=== PATIENT | female | born 1980 | race Asian ===

== ENCOUNTER 2016-11-21 10:54 | Inpatient (IN) | payer OTHER ==
[2016-11-21] VITALS (22 sets, daily range): BP systolic 85–132; BP diastolic 47–76; PULSE 75–120; RESP 10–22; Ht 154.9 cm; Wt 52.8 kg
[~2016-11-21] VITALS: Ht 154.9 cm; Wt 52.8 kg
[2016-11-21] MEDS: SOD CHLORIDE 0.9% 1,000 ML IV SCH ×2 (07:00→20:36)
[2016-11-21 12:15] LABS: ADD SCAN DIFF NO
[2016-11-21 12:23] LABS: BASOPHIL # 0.1 10^3/ul (0.0-0.1); BASOPHILS % 0.4 % (0.0-2.0); EOSINOPHILS # 0.3 10^3/ul (0.0-0.5); EOSINOPHILS % 2.1 % (0.0-7.0); HEMATOCRIT 42.4 % (37.0-47.0); HEMOGLOBIN 13.6 g/dl (12.0-16.0); LYMPHOCYTES # 1.3 10^3/ul (0.8-2.9); LYMPHOCYTES % 9.9 % (15.0-51.0); MEAN CORPUSCULAR HEMOGLOBIN 29.2 pg (29.0-33.0); MEAN CORPUSCULAR HGB CONC 32.1 g/dl (32.0-37.0); MEAN PLATELET VOLUME 9.4 fl (7.4-10.4); MONOCYTE # 0.9 10^3/ul (0.3-0.9); MONOCYTES % 6.5 % (0.0-11.0); NEUTROPHIL # 10.6 10^3/ul (1.6-7.5); NEUTROPHILS % 80.7 % (39.0-77.0); PLATELET COUNT 410 10^3/UL (140-415); RED BLOOD COUNT 4.66 10^6/ul (4.20-5.40); RED CELL DISTRIBUTION WIDTH 13.1 % (11.5-14.5); WHITE BLOOD COUNT 13.2 10^3/ul (4.8-10.8)
[2016-11-21 12:30] LABS: PROTIME 13.2 Sec (12.2-14.2)
[2016-11-21 12:31] LABS: PARTIAL THROMBOPLASTIN TIME 31.2 Sec (25.0-35.0)
[2016-11-21 12:41] LABS: CREATININE 0.58 mg/dl (0.44-1.00); POTASSIUM 3.9 mmol/L (3.5-5.1)
[2016-11-21 13:15] LABS: CALCIUM 9.6 mg/dl (8.4-10.2)
[2016-11-21] MEDS ORDERED: ISOSULFAN BLUE 1% 5 ML INJ SC ONE (14:19)
[2016-11-21] MEDS ORDERED: CEFAZOLIN 2 GM/50 ML (PMX) 50 ML IVPB ONE (15:00)
[2016-11-21] MEDS: D5W-0.45 NACL + KCL 20 MEQ 1,000 ML IV SCH (15:45)
[2016-11-21] MEDS ORDERED: CEFAZOLIN 1 GM INJ ONE (15:48)
[2016-11-21] MEDS ORDERED: MIDAZOLAM 1 MG/ML 2 ML INJ ONE (15:48)
[2016-11-21] MEDS ORDERED: FENTAnyl 50 MCG/ML VIAL ONE (15:48)
[2016-11-21] MEDS ORDERED: PROPOFOL 20 ML ONE (15:48)
[2016-11-21] MEDS ORDERED: LIDOCAINE 2% (SDV) 5 ML INJ ONE (15:48)
[2016-11-21] MEDS ORDERED: ACETAMINOPHEN 1000MG/100ML IV 100 ML IVPB PRN (16:00)
[2016-11-21] MEDS ORDERED: ACETAMINOPHEN 1000MG/100ML IV 100 ML ONE (16:07)
[2016-11-21] MEDS ORDERED: METOCLOPRAMIDE 10 MG INJ ONE (16:08)
[2016-11-21] MEDS ORDERED: ONDANSETRON 4 MG INJ ONE (16:08)
[2016-11-21] MEDS ORDERED: HYDROmorphONE 2 MG/ML SYG ONE (16:21)
[2016-11-21] MEDS ORDERED: PHENYLephrine (100 MCG/ML) 5ML SYG ONE (16:33)
--- NOTE | 2016-11-21 17:13 | OPR ---
DATE OF OPERATION: 11/21/2016 PREOPERATIVE DIAGNOSIS: Invasive cancer, right breast. POSTOPERATIVE DIAGNOSIS: Invasive cancer, right breast. OPERATION PERFORMED: Right partial mastectomy and axillary dissection utilizing sentinel lymph node technique. ANESTHESIA: General. ANESTHESIOLOGIST: Lisa Brenner MD SURGEON: Haim Anguiano MD CANCER RESEARCHER: Favian Isaac MD INDICATIONS FOR PROCEDURE: The patient is a very unfortunate 36-year-old female who presented with a relatively large mass in her right breast approximately 3 cm in diameter. Workup including biopsy revealed a poorly differentiated cancer tumorous HER-2 negative and ER-positive and DC-positive. T herefore, decision was made to take her directly to surgery. She was counseled as to the risks vers us benefits of partial mastectomy and axillary dissection utilizing sentinel lymph node technique. She consented and was scheduled for surgery. DESCRIPTION OF PROCEDURE: The patient was brought to the operating theater. She consented and was scheduled for surgery. DESCRIPTION OF PROCEDURE: The patient was brought to the operating theater, placed under general en dotracheal tube anesthesia. The right breast and axillary region was prepped and draped in the usua l sterile fashion. Approximately 4 mL of 1% Lymphazurin blue dye was then injected peritumorally. The breast was gently massaged for approximately 12 minutes. Subsequently, a 3 cm incision was made in the right axillary hairline. Subcutaneous tissue was dissected with cautery down through the cl avipectoral fascia. A dye-stained lymphatic was identified and traced to the obvious sentinel node. There were additional enlarged nodes in this area. Therefore, decision was made to proceed with l evel 1 dissection. With blunt dissection along the chest wall the long thoracic nerve was identifie d, more superiorly the subclavian vein and thoracodorsal neurovascular bundle were identified and ke pt out of harm's way. The sentinel node and these additional axillary nodes were then meticulously harvested using LigaSure device. Intraoperative cytologic analysis performed by attending pathologi stDr. Rg did not reveal definite evidence of metastatic disease. Therefore, the woun d was irrigated. Minimal bleeding was controlled with cautery. A #10 flat Danish drain was then br ought through the right mid axillary line, cut to size, laid within the axilla and secured in place with 2-0 nylon suture in standard fashion. The skin was then reapproximated with a 4-0 Vicryl sutur e in subcuticular fashion. Attention was then directed to performing the partial mastectomy. The mass was palpable and it was at approximately the 1 to 2 o'clock location, approximately 3-4 cm from the nipple areolar border. A curvilinear incision was made directly over the mass. Subcutaneous tissue was dissected with caut ann-marie. Skin edges were elevated with skin hooks and wide circumferential tissue associated with the m ass took place, taking great care to ensure adequate margin. The mass was then dissected off the pe ctoralis major muscle. It was oriented and sent for permanent pathologic analysis. The wound was i rrigated. Minimal bleeding was controlled with cautery. The skin was then reapproximated with a de ep dermal layer of 4-0 Vicryl sutures, followed by final skin approximation with 5-0 PDS sutures in subcuticular fashion. Benzoin and Steri-Strips were applied to both wounds. The patient tolerated procedure well. Estimated blood loss was 30 mL. There were no complications and the patient was tr ansported in stable condition to the recovery room where circumferential compression dressing was ap plied. Dictated By: HAIM ANGUIANO MD TL/GUANACO Conf#: [id number] DID#: [id number] CC: FAVIAN ISAAC MD;*End*
[2016-11-21] MEDS ORDERED: DIPHENHYDRAMINE 50 MG INJ IV PRN (17:30)
[2016-11-21] MEDS ORDERED: ONDANSETRON 4 MG INJ IV PRN (17:30)
[2016-11-21] MEDS ORDERED: PROCHLORPERAZINE 10 MG INJ IV PRN (17:30)
[2016-11-21] MEDS ORDERED: IPRATROPIUM (NEB) 0.5 MG/2.5 ML AMP HHN ONE (17:30)
[2016-11-21] MEDS ORDERED: METOCLOPRAMIDE 10 MG INJ IV PRN (17:30)
[2016-11-21] MEDS ORDERED: HYDROmorphONE (0.2 MG/ML) 10ML SYG IV PRN (17:30)
[2016-11-21] MEDS ORDERED: MEPERIDINE 25 MG INJ IV PRN (17:30)
[2016-11-21] MEDS ORDERED: ALBUTEROL 0.5% (NEB) 2.5 MG/0.5 ML AMP INH ONE (17:30)
[2016-11-21] MEDS: FENTAnyl 50 MCG/ML VIAL IV PRN ×2 (17:43→17:48)
[2016-11-21] MEDS ORDERED: OXYCODONE/ACETAMINOPHEN (5/325) TAB PO PRN (19:00)
[2016-11-21 19:29] LABS: ADD SCAN DIFF NO
[2016-11-21 19:32] LABS: BASOPHIL # 0.1 10^3/ul (0.0-0.1); BASOPHILS % 0.4 % (0.0-2.0); EOSINOPHILS # 0.1 10^3/ul (0.0-0.5); EOSINOPHILS % 0.9 % (0.0-7.0); HEMATOCRIT 37.2 % (37.0-47.0); HEMOGLOBIN 11.8 g/dl (12.0-16.0); LYMPHOCYTES # 1.6 10^3/ul (0.8-2.9); LYMPHOCYTES % 11.7 % (15.0-51.0); MEAN CORPUSCULAR HEMOGLOBIN 29.4 pg (29.0-33.0); MEAN CORPUSCULAR HGB CONC 31.7 g/dl (32.0-37.0); MEAN CORPUSCULAR VOLUME 92.5 fl (82.0-101.0); MEAN PLATELET VOLUME 9.3 fl (7.4-10.4); MONOCYTES % 6.9 % (0.0-11.0); NEUTROPHILS % 79.6 % (39.0-77.0); PLATELET COUNT 337 10^3/UL (140-415); RED BLOOD COUNT 4.02 10^6/ul (4.20-5.40); RED CELL DISTRIBUTION WIDTH 13.1 % (11.5-14.5); WHITE BLOOD COUNT 13.8 10^3/ul (4.8-10.8)
[2016-11-21] MEDS: ONDANSETRON 4 MG INJ IV PRN (20:36)
--- NOTE | 2016-11-21 21:24 | HP ---
DATE OF ADMISSION: 11/21/2016 CHIEF COMPLAINT AND HISTORY OF PRESENT ILLNESS: The patient is a 36-year-old female with a history of pulmonary embolism back in 10/2016 and was admitted at [facility] and was put on Eliquis. The patient has been following up with Dr. Anguiano as an outpatient. The patient initially was diagnosed with a right breast mass and subsequently underwent ultrasound-guided core biopsy whic h was positive for invasive ductal carcinoma. The patient [facility] The patient also underwent PET scan as an outpatient which was negative for distant metasta sis. The patient was brought into hospital today and underwent right partial mastectomy and axillar y dissection. The patient postoperatively looked pale, and therefore a stat CBC has been ordered. The patient, however, was not very tachycardic. The patient was slightly sleepy but easily arousabl e and was fairly alert and oriented. Denies any abdominal pain. No vomiting. No recent bleeding f rom any site since she was started on Xarelto. No focal weakness in any extremity. No vomiting sin ce admission. The patient is breathing comfortably. REVIEW OF SYSTEMS: The rest of review of systems was unremarkable. PAST SURGICAL HISTORY: None. ALLERGIES: LEVOTHYROXINE, WHICH CAUSES SHORTNESS OF BREATH. SOCIAL HISTORY: No smoking, no alcohol. FAMILY HISTORY: The patient's maternal grandmother had breast cancer. MEDICATIONS PRIOR TO ADMISSION: The patient was on Eliquis 5 mg b.i.d. as per her , although it was not reconciled in the medical record. PHYSICAL EXAMINATION: GENERAL: The patient is sleepy but easily arousable and follows simple commands. VITAL SIGNS: Temperature 97.7, pulse 93, respirations 16, blood pressure 85/53, O2 sat 100% on supp lemental oxygen. HEENT: Conjunctivae and lids normal. Nose and ears normal. Oropharynx grossly negative. NECK: No mass. CHEST: Fairly clear. CARDIOVASCULAR: S1, S2 normal. No murmur. ABDOMEN: Soft, nondistended. EXTREMITIES: No leg edema. Pedal pulses palpable. SKIN: Without acute rash. IMPRESSION: 1. Invasive cancer, right breast, status post right partial mastectomy and axillary resection. 2. History of recent pulmonary embolism. PLAN: The patient will be admitted on medical floor. The patient will be started on clear liquid d iet which will be advanced as tolerated. The patient will be given IV Tylenol, Percocet and IV morp austin for pain control depending upon severity. The patient will be given IV fluid. Will do a stat CBC. Will continue SCD for DVT prophylaxis. Will resume Xarelto once cleared by Surgery. Plan of care discussed with the patient's and nursing staff. If patient has any significant drop in hemoglobin, will consider transfusion. Dictated By: DANNY JOSEPH/GUANACO Conf#: [id number] DID#: [id number]
[2016-11-21] MEDS: morphine 2 MG INJ IV PRN (21:52)
[2016-11-22 00:02] VITALS: BP 110/72; PULSE 94; RESP 18
[2016-11-22] MEDS: D5W-0.45 NACL + KCL 20 MEQ 1,000 ML IV SCH ×4 (00:07→22:50)
[2016-11-22 03:26] VITALS: BP 105/65; PULSE 95; RESP 18
[2016-11-22] MEDS: morphine 2 MG INJ IV PRN ×2 (03:28→22:47)
[2016-11-22] MEDS: ONDANSETRON 4 MG INJ IV PRN ×2 (03:29→22:45)
[2016-11-22 07:26] VITALS: BP 111/59; RESP 18
[2016-11-22] MEDS: SOD CHLORIDE 0.9% 1,000 ML IV SCH ×2 (07:46→22:50)
[2016-11-22] MEDS ORDERED: APIX5TAB PO (08:34)
[2016-11-22] MEDS: APIXABAN 5 MG TABLET PO SCH ×2 (09:38→20:39)
[2016-11-22] MEDS ORDERED: ALBUTEROL 0.5% (NEB) 2.5 MG/0.5 ML AMP HHN PRN (11:00)
[2016-11-22] MEDS: ALBUTEROL 0.5% (NEB) 2.5 MG/0.5 ML AMP HHN SCH ×2 (11:42→19:36)
--- NOTE | 2016-11-22 14:53 | PDOCDIS ---
Discharge Instructions CONDITION Patient Condition: Stable HOME CARE INSTRUCTIONS: Diet Instructions: RegularSpecial Diet: rd ACTIVITY: Activity Restrictions: Slowly Increase Activity Rest between Activity Avoid heavy lifting Avoid Heavy Housework Activity Restrictions Comment: Avoid getting surgical incision wet at all times FOLLOW UP/APPOINTMENTS Appointments FU with primary MD X 1 WEEK FU with surgeon as recommended. Call 911 or go to the nearest hospital if symptoms worsen- patient verbalized understanding discharge instructions GIOVANNA DELCID Nov 22, 2016 14:53
--- NOTE | 2016-11-22 15:20 | PN ---
DATE: 11/22/2016 SUBJECTIVE: No specific complaints. Apparently, she has been feeling slightly short of breath. She has received a pulmonary treatment and she is feeling better now. No chest pain. . OBJECTIVE VITAL SIGNS: Temperature 98.4, heart rate 74 to 86, respiratory rate 16 to 18, blood pressure 111/59, saturation 99% on room air. ABDOMEN: Soft. Dressing is intact. Leroy-Thao drain is draining serosanguineous fluid. ASSESSMENT AND PLAN: The patient is a 36-year-old female with invasive cancer of the right breast, who underwent a partial mastectomy with sentinel lymph node dissection at axillary level 1 lymph nodes. Today she is postoperative day #1. The patient is stable and doing fine. Apparently, the patient has been on anticoagulation with Eliquis before her operation for possible pulmonary emboli, which was diagnosed about a month ago. She stopped taking this on Thursday, 2 days prior to operation, and today it was restarted by Dr. Anguiano. The patient is doing fine. The patient can be discharged home with the Leroy-Thao drain in place and the nurse is going to teach the patient how to take care of the Leroy-Thao, and then she will call the office on Thursday and make an appointment to follow with Dr. Anguiano in the office. Dictated By: SKYLER SMITH/GUANACO Conf#: [id number] DID#: [id number] MTDD
[2016-11-22] MEDS ORDERED: DOCU-144 PO (15:39)
[2016-11-22] MEDS ORDERED: OXYC-279 PO (15:39)
[2016-11-22] MEDS ORDERED: CEPH500C PO (15:39)
--- NOTE | 2016-11-22 15:51 | PN ---
Date/Time of Note Date/Time of Note DATE: 11/22/16 TIME: 15:50 Assessment/Plan VTE Prophylaxis VTE Prophylaxis Intervention: other Lines/Catheters IV [facility]from [facility] Peripheral IV Urinary Cath still in place: No Assessment/Plan Assessment/Plan 1. Invasive cancer, right breast, status post right partial mastectomy and axillary resection. - per surgery 2. History of recent pulmonary embolism. Patient is not ready to go home today, would like another day in hospital. She c /o Sob BUT NONE NOTICED AT PRESENT. We will do AM labs, CXR - fu. dw dr Price Subjective 24 Hr Interval Summary Eyes: no complaints ENT: no complaints Respiratory: no complaints Cardiovascular: no complaints Gastrointestinal: no complaints Genitourinary: no complaints Musculoskeletal: no complaints Skin: other Neurologic: no complaints Endocrine: no complaints Lymphatic: no complaints Psychological: nl mood/affect Immunologic: no complaints Exam/Review of Systems Vital Signs Vitals Vital Signs Date Time Temp Pulse Resp B/P Pulse Ox O2 Delivery O2 Flow Rate FiO2 11/22/16 11:50 86 16 100 11/22/16 08:00 2.0 11/22/16 07:26 98.4 111/59 11/22/16 03:26 Room Air Intake and Output 11/21/16 11/21/16 11/22/16 15:00 23:00 07:00 Intake Total 900 ml 1127 ml Output Total 10 ml 420 ml Balance 890 ml 707 ml Exam Constitutional: alert, oriented, well developed Psych: nl mood/affect Head: atraumatic Eyes: EOMI, nl sclera ENMT: nl external ears & nose Neck: non-tender Respiratory: clear to auscultation Cardiovascular: nl pulses Gastrointestinal: non-tender, soft Musculoskeletal: nl extremities to inspection Extremities: normal pulses Neurological: nl mental status, nl speech Results Result Diagram: 11/21/16 1925 11/21/16 1208 Results 24 hrs Laboratory Tests Test 11/21/16 19:25 Basophils # 0.1 Basophils % 0.4 Eosinophils # 0.1 Eosinophils % 0.9 Hematocrit 37.2 Hemoglobin 11.8 L Lymphocytes # 1.6 Lymphocytes % 11.7 L Mean Corpuscular Hemoglobin 29.4 Mean Corpuscular Hemoglobin Concent 31.7 L Mean Corpuscular Volume 92.5 Mean Platelet Volume 9.3 Monocytes # 1.0 H Monocytes % 6.9 Neutrophils # 11.0 H Neutrophils % 79.6 H Nucleated Red Blood Cells # 0.0 Nucleated Red Blood Cells % 0.0 Platelet Count 337 Red Blood Count 4.02 L Red Cell Distribution Width 13.1 White Blood Count 13.8 H Medications Medications Current Medications Sodium Chloride (NS) 1,000 ml @ 75 mls/hr [id number] IV Last administered on 11/21 20:36; Admin Dose 75 MLS/HR; Start 11/21/16 at 07:00 Ondansetron HCl 4 mg 4 mg Q6H PRN IV NAUSEA AND/OR VOMITING Last administered on 11/22/16 03:29; Admin Dose 4 MG; Start 11/21/16 at 16:00 Potassium Chloride/Dextrose/ Sod Cl (D5-1/2ns + KCl 20 Meq) 1,000 ml @ 125 mls/ hr Q8H IV Last administered on 11/22/16 12:04; Admin Dose 125 MLS/HR; Start at 15:45 Morphine Sulfate 2 mg 2 mg Q1H PRN IV PAIN Last administered on 11/22/16 03:28 ; Admin Dose 2 MG; Start 11/21/16 at 16:00 Acetaminophen (Ofirmev 1000mg/ 100ml Iv) 100 ml @ 400 mls/hr Q6H PRN IVPB PAIN Last administered on 11/22/16 09:38; Admin Dose 400 MLS/HR; Start at 16:00 Oxycodone/ Acetaminophen (Percocet (5/ 325)) 1 tab Q4H PRN PO PAIN Last administered on 11/22/16 15:07; Admin Dose 1 TAB; Start 11/21/16 at 19:00 Apixaban (Eliquis) 5 mg BID PO Last administered on 11/22/16 09:38; Admin Dose 5 MG; Start 11/22/16 at 09:00 GIOVANNA DELCID Nov 22, 2016 15:51
--- NOTE | 2016-11-22 17:48 | RADRPT ---
PROCEDURE: XR Chest. CLINICAL INDICATION: Chest pain, shortness of breath TECHNIQUE: AP view of the chest was performed. COMPARISON: None FINDINGS: Borderline cardiomegaly is present. The lungs are clear. No signs of pleural fluid or pneumothorax a re seen. No acute infiltrate or findings of fluid overload. The osseous structures and soft tissues are unremarkable. IMPRESSION: No evidence for active cardiopulmonary disease. Borderline cardiomegaly. No acute infiltrate or fin dings of fluid overload. RPTAT: QQ .Ayesha Nascimento MD, MD Date Time Electronically viewed and signed by .Ayesha Nascimento MD, MD on 11/22/2016 17:47 .F/
[2016-11-22] MEDS ORDERED: CEPHALEXIN 500 MG CAP PO SCH (18:00)
[2016-11-22 20:20] VITALS: BP 110/72; PULSE 94; RESP 18
[2016-11-22] MEDS ORDERED: DIPHENHYDRAMINE 50 MG INJ IM PRN (21:00)
[2016-11-23 05:39] LABS: ALBUMIN 3.2 g/dl (3.3-4.9)
[2016-11-23 05:40] LABS: POTASSIUM 3.4 mmol/L (3.5-5.1)
[2016-11-23 05:42] LABS: ALBUMIN/GLOBULIN RATIO 1.28; BILIRUBIN,INDIRECT 0.2 mg/dl (0-1.1); BILIRUBIN,TOTAL 0.2 mg/dl (0.2-1.3); CREATININE 0.57 mg/dl (0.44-1.00); TOTAL PROTEIN 5.7 g/dl (6.1-8.1)
[2016-11-23 05:43] LABS: CALCIUM 8.6 mg/dl (8.4-10.2)
[2016-11-23] MEDS: D5W-0.45 NACL + KCL 20 MEQ 1,000 ML IV SCH (07:45)
[2016-11-23 08:11] VITALS: BP 105/66; RESP 20
[2016-11-23] MEDS: APIXABAN 5 MG TABLET PO SCH ×2 (10:48→17:57)
[2016-11-23] MEDS: ALBUTEROL 0.5% (NEB) 2.5 MG/0.5 ML AMP HHN SCH (11:03)
[2016-11-23] MEDS ORDERED: traMADol 50 MG TAB PO PRN (12:00)
[2016-11-23 12:09] LABS: ADD SCAN DIFF NO
[2016-11-23] MEDS: SOD CHLORIDE 0.9% 1,000 ML IV SCH (12:20)
[2016-11-23] MEDS ORDERED: CEPASTAT LOZENGE MT PRN (12:30)
[2016-11-23 13:34] LABS: BASOPHIL # 0.1 10^3/ul (0.0-0.1); BASOPHILS % 0.5 % (0.0-2.0); EOSINOPHILS # 0.4 10^3/ul (0.0-0.5); EOSINOPHILS % 4.2 % (0.0-7.0); HEMATOCRIT 34.9 % (37.0-47.0); HEMOGLOBIN 11.1 g/dl (12.0-16.0); LYMPHOCYTES # 2.2 10^3/ul (0.8-2.9); MEAN CORPUSCULAR HGB CONC 31.8 g/dl (32.0-37.0); MEAN CORPUSCULAR VOLUME 94.3 fl (82.0-101.0); MEAN PLATELET VOLUME 9.8 fl (7.4-10.4); MONOCYTES % 9.9 % (0.0-11.0); NEUTROPHIL # 6.2 10^3/ul (1.6-7.5); NEUTROPHILS % 63.1 % (39.0-77.0); PLATELET COUNT 329 10^3/UL (140-415); RED CELL DISTRIBUTION WIDTH 13.5 % (11.5-14.5); WHITE BLOOD COUNT 9.8 10^3/ul (4.8-10.8)
[2016-11-23] MEDS ORDERED: POTASSIUM CHLORIDE (SR) 20 MEQ TAB PO STA (14:38)
--- NOTE | 2016-11-23 15:43 | PN ---
DATE: 11/23/2016 Postop day #2. SUBJECTIVE: The patient feels better. No more shortness of breath. Has been walking around. OBJECTIVE: VITAL SIGNS: Temperature 98.2, 71, 18, blood pressure 105/66, saturation 98% to 99% on room air. LABORATORIES: WBC 9800, normal. Hemoglobin 11.1, hematocrit 34.9. Neutrophils 63%, normal. Chemi stry: Sodium, potassium, BUN, creatinine normal. ASSESSMENT: Status post right partial mastectomy with axillary dissection. The patient is stable. She has history of pulmonary emboli in the past and she was short of breath here, which was evaluat ed and treated with the respiratory treatment with bronchodilators and also the patient is on an ant icoagulant which was started yesterday. The patient is doing fine. Leroy-Thao drainage is not b loody. PLAN: The patient feels good, she wants to go home, and patient can be discharged home with pain me dication to be followed by Dr. Anguiano in his office. She should call and make an appointment. Also, Leroy-Thao will stay there, and will be changed and removed in the office by Dr. Anguiano' group. Dictated By: SKYLER BERKOWITZ MD PS/NTS Conf#: [id number] DID#: [id number]
[2016-11-23] MEDS ORDERED: TRAM50TA2 PO (16:05)
--- NOTE | 2016-11-23 16:07 | DS ---
Date/Time of Note Date/Time of Note DATE: 11/23/16 TIME: 16:06 Discharge Summary Admission/Discharge Info Admit Date/Time Nov 21, 2016 at 18:35 Discharge Date/Time Patient Condition: Stable Hospital Course Keflex, Percocet dcd on discharge. Home Meds Active Scripts Tramadol HCl (Tramadol HCl) 50 Mg Tablet, 50 MG PO Q6H Y for PAIN, #20 TAB Prov:GIOVANNA DELCID 11/23/16 Cephalexin* (Cephalexin*) 500 Mg Capsule, 500 MG PO Q6 for 7 Days, #28 CAP Prov:GIOVANNA DELCID 11/22/16 Oxycodone HCl/Acetaminophen (Percocet 5-325 mg Tablet) 1 Each Tablet, 1 EACH PO Q6, #14 TAB Prov:GIOVANNA DELCID 11/22/16 Docusate Sodium* (Colace*) 100 Mg Capsule, 100 MG PO BID, #30 CAP Prov:GIOVANNA DELCID 11/22/16 Reported Medications Apixaban* (Eliquis*) 5 Mg Tablet, 5 MG PO BID, TAB 11/22/16 Pending Labs Laboratory Tests Test 11/23/16 04:14 Alanine Aminotransferase (ALT/SGPT) 22IU/L (13-69) Albumin 3.2g/dl (3.3-4.9) Albumin/Globulin Ratio 1.28 Alkaline Phosphatase 39IU/L (42-121) Anion Gap 13 (8-16) Aspartate Amino Transf (AST/SGOT) 14IU/L (15-46) Basophils # 0.110^3/ul (0.0-0.1) Basophils % 0.5% (0.0-2.0) Blood Urea Nitrogen 9mg/dl (7-20) Calcium Level 8.6mg/dl (8.4-10.2) Carbon Dioxide Level 27mmol/L (21-31) Chloride Level 106mmol/L (97-110) Creatinine 0.57mg/dl (0.44-1.00) Direct Bilirubin 0.00mg/dl (0.00-0.20) Eosinophils # 0.410^3/ul (0.0-0.5) Eosinophils % 4.2% (0.0-7.0) Globulin 2.50g/dl (1.3-3.2) Glucose Level 87mg/dl (70-220) Hematocrit 34.9% (37.0-47.0) Hemoglobin 11.1g/dl (12.0-16.0) Indirect Bilirubin 0.2mg/dl (0-1.1) Lymphocytes # 2.210^3/ul (0.8-2.9) Lymphocytes % 22.0% (15.0-51.0) Mean Corpuscular Hemoglobin 30.0pg (29.0-33.0) Mean Corpuscular Hemoglobin Concent 31.8g/dl (32.0-37.0) Mean Corpuscular Volume 94.3fl (82.0-101.0) Mean Platelet Volume 9.8fl (7.4-10.4) Monocytes # 1.010^3/ul (0.3-0.9) Monocytes % 9.9% (0.0-11.0) Neutrophils # 6.210^3/ul (1.6-7.5) Neutrophils % 63.1% (39.0-77.0) Nucleated Red Blood Cells # 0.010^3/ul (0.0-0.0) Nucleated Red Blood Cells % 0.0/100WBC (0.0-0.0) Platelet Count 73923^3/UL (140-415) Potassium Level 3.4mmol/L (3.5-5.1) Red Blood Count 3.7010^6/ul (4.20-5.40) Red Cell Distribution Width 13.5% (11.5-14.5) Sodium Level 143mmol/L (135-144) Total Bilirubin 0.2mg/dl (0.2-1.3) Total Protein 5.7g/dl (6.1-8.1) White Blood Count 9.810^3/ul (4.8-10.8) GIOVANNA DELCID Nov 23, 2016 16:07
== END 2016-11-23 18:45 | disposition home or self-care (01) | DRG 581 ==
LOC: SDS 10:54 → EDSTATUS 14:00 → MS1 18:35 → SDS 18:35
PROVIDERS: ADMIT Surgery Surgical Oncology; ATTEND Surgery Surgical Oncology
PROC: 07B50ZZ Excision of Right Axillary Lymphatic, Open Approach (ICD-10-PCS; 2016-11-21)
PROC: 0HBT0ZZ Excision of Right Breast, Open Approach (ICD-10-PCS; principal; 2016-11-21 14:00)
DX: C50.411 Malignant neoplasm of upper-outer quadrant of right female breast (principal); Z86.711 Personal history of pulmonary embolism
CPT/HCPCS: 71010; 80048; 80053; 84703; 85025; 85610; 85730; 88307; 94640; 94664; J0131; J0690; J1170; J2175; J2250; J2270; J2370; J2405; J2765; J3010; J3480; J7030; Q9968

== ENCOUNTER → 2016-12-30 | Outpatient (CLI) | payer OTHER ==
[~2016-12-30] MED LIST: APIX5TAB PO; CEPH500C PO; DOCU-144 PO; OXYC-279 PO; TRAM50TA2 PO
--- NOTE | 2016-12-31 08:10 | RADRPT ---
Echocardiogram Report Patient Name: BJORN BULLARD Gender: Female Date: 1980 Study Date: 30-Dec-2016 Time Study Analyst: Jaelyn Lopez RDCS Location: EKG Ref. Physician: ANIRUDH LEUNG Quality: Good Procedures: Transthoracic echocardiogram with complete 2D, M-Mode, and doppler examination. Indications: Breast Cancer. 2D/M Mode Doppler Measurement Value Normal Ranges Measurement Value Normal Ranges LVIDd 2D 3.7 3.5 - 5.6 cm AV Peak Vin 1.2 m/sec LVIDs 2D 2.7 2.1 - 4.1 cm AV Peak PG 6.0 mmHg FS 2D 25.9 % LVOT Peak Vin 1.1 m/sec LVPWd 2D 0.7 0.6 - 1.1 cm LVOT Peak PG 5.0 mmHg IVSd 2D 0.7 0.6 - 1.1 cm MV E Peak Vin 0.7 m/sec IVS/LVPW 2D 1.0 MV A Peak Vin 0.6 m/sec AoR Diam 2D 2.1 2.0 - 3.7 cm MV E/A 1.1 LA/Ao 2D 1 0 - 1 MV Decel Time 218 msec EDV 2D 49.4 cm3 MV E/A 1.1 ESV 2D 20.1 cm3 LA Dimen 2D 2.6 2.3 - 4.0 cm Findings Left Ventricle: Normal left ventricular systolic function. Normal left ventricular cavity size. Normal left ventricular wall thickness. Ejection fraction is visually estimated at 55 %. Tissue Doppler/Mitral Doppler indices are within normal limits. Right Ventricle: Normal right ventricular size. Normal right ventricular systolic function. Left Atrium: The left atrium is normal in size. Right Atrium: The right atrium is normal in size. Mitral Valve: Normal appearance and function of the mitral valve with trace physiologic regurgitation. Aortic Valve: Normal appearance of the aortic valve. No significant aortic stenosis or insufficiency. Tricuspid Valve: Normal appearance of the tricuspid valve. Unable to obtain RVSP due to minimal presence of tricuspid regurgitation. There is trace tricuspid regurgitation. Pulmonic Valve: Normal pulmonic valve appearance. Pericardium: Normal pericardium with no significant pericardial effusion. Aorta: Normal aortic root. IVC: Normal size and normal respiratory collapse consistent with normal right atrial pressure. Conclusions Normal left ventricular systolic function. Normal left ventricular cavity size. Normal left ventricular wall thickness. Ejection fraction is visually estimated at 55 %. Tissue Doppler/Mitral Doppler indices are within normal limits. Normal right ventricular size. Normal right ventricular systolic function. Normal appearance of the tricuspid valve. Unable to obtain RVSP due to minimal presence of tricuspid regurgitation. There is trace tricuspid regurgitation. Normal size and normal respiratory collapse consistent with normal right atrial pressure. Normal pericardium with no significant pericardial effusion. Electronically Signed By: Keanu Hawkins 31-Dec-2016 08:08:55 -0700 Patient Name: BJORN BULLARD Study Date: 30-Dec-2016 [id number]
== END | disposition home or self-care (01) ==
LOC: EKG 14:09
PROVIDERS: ATTEND Internal Medicine Hematology & Oncology
DX: C50.919 Malignant neoplasm of unspecified site of unspecified female breast (principal)
CPT/HCPCS: 93306

== ENCOUNTER 2017-01-02 08:49 | Inpatient (IN) | payer OTHER ==
[2017-01-01] MEDS: SOD CHLORIDE 0.9% 1,000 ML IV SCH (20:00)
[2017-01-02] VITALS (23 sets, daily range): BP systolic 96–131; BP diastolic 45–73; PULSE 74–100; RESP 16–20; Ht 154.9 cm; Wt 52.4 kg
[~2017-01-02] VITALS: Ht 154.9 cm; Wt 52.4 kg
[~2017-01-02 08:49] MED LIST changes: +CEFAZOLIN 1 GM INJ ONE; +CEFAZOLIN 1 GM/50 ML (PMX) 50 ML IVPB ONE; +ROCURONIUM 50 MG INJ ONE
[2017-01-02] MEDS ORDERED: FENTAnyl 50 MCG/ML VIAL ONE (12:00)
[2017-01-02] MEDS ORDERED: PHENYLephrine (100 MCG/ML) 5ML SYG ONE (12:40)
[2017-01-02] MEDS ORDERED: DIPHENHYDRAMINE 50 MG INJ IV PRN (13:00)
[2017-01-02] MEDS ORDERED: MEPERIDINE 25 MG INJ IV PRN (13:00)
[2017-01-02] MEDS ORDERED: ONDANSETRON 4 MG INJ IV PRN (13:00)
[2017-01-02] MEDS ORDERED: ALBUTEROL 0.083% (NEB) 2.5 MG/3 ML AMP HHN ONE (13:00)
[2017-01-02] MEDS ORDERED: METOCLOPRAMIDE 10 MG INJ IV PRN (13:00)
[2017-01-02] MEDS ORDERED: FENTAnyl 50 MCG/ML VIAL IV PRN (13:00)
[2017-01-02] MEDS ORDERED: GLYCOPYRROLATE 0.4 MG INJ ONE (13:08)
[2017-01-02] MEDS ORDERED: SUCCINYLCHOLINE CHLORIDE 100 MG/5 ML SYG IV ONE (13:08)
[2017-01-02] MEDS ORDERED: LIDOCAINE 2% (SDV) 5 ML INJ ONE (13:08)
[2017-01-02] MEDS ORDERED: NEOSTIGMINE 3 MG/3 ML SYRINGE ONE (13:08)
[2017-01-02] MEDS ORDERED: PROPOFOL 20 ML ONE (13:08)
[2017-01-02] MEDS: FENTAnyl 50 MCG/ML VIAL IV PRN ×3 (13:28→14:13)
--- NOTE | 2017-01-02 13:39 | OPR ---
DATE OF OPERATION: 01/02/2017 PREOPERATIVE DIAGNOSIS: Right breast cancer, need for right reexcision partial mastectomy. POSTOPERATIVE DIAGNOSIS: Right breast cancer, need for right reexcision partial mastectomy. PROCEDURE PERFORMED: Reexcision right partial mastectomy. SURGEON: Haim Anguiano MD ICE HOCKEY COACH: Favian Isaac MD ANESTHESIA: General. ANESTHESIOLOGIST: Liam Lyle MD INDICATIONS FOR PROCEDURE: The patient is an unfortunate 36-year-old female previously diagnosed an d treated for right breast cancer with a right partial mastectomy and axillary dissection using the sentinel lymph node technique. Final pathology revealed inadequate posterior margin. Reexcision wa s recommended. The patient consented and was scheduled for surgery. DESCRIPTION OF PROCEDURE: The patient was brought to the operating theater, placed under general an esthesia. The right breast was prepped and draped in the usual sterile fashion. The previous surgi selam incisional scar was then reincised with 15 blade scalpel. Subcutaneous tissue was dissected wit h cautery until the biopsy cavity was entered. A small amount of seroma fluid and clot was then suc tioned and evacuated from the biopsy cavity. The skin edges were elevated with skin hooks and wide circumferential dissection of the biopsy cavity took place, taking great care to ensure an adequate posterior margin. This was accomplished by taking a small portion of the pectoralis major muscle. Specimen was removed, oriented and sent for permanent pathologic analysis. The wound was irrigated. Minimal bleeding was controlled with cautery. The skin was then reapproximated with 4-0 Vicryl woody ture in subcuticular fashion, and benzoin and Steri-Strips were applied. The patient tolerated the procedure well. The estimated blood loss was 20 mL. There were no complications and the patient wa s transported in stable condition to the recovery room where a circumferential compression dressing was applied. Dictated By: HAIM ANGUIANO MD TL/GUANACO Conf#: [id number] DID#: [id number]
[2017-01-02] MEDS ORDERED: morphine 2 MG INJ ONE (14:58)
[2017-01-02] MEDS: morphine 2 MG INJ IV PRN (15:53)
[2017-01-02] MEDS: D5W-0.45 NACL + KCL 20 MEQ 1,000 ML IV SCH (17:00)
[2017-01-02] MEDS: ONDANSETRON 4 MG INJ IV PRN (17:02)
--- NOTE | 2017-01-02 17:02 | QN ---
Documentation Comment [id number] NELY MARCUM MD Jan 02, 2017 17:02
[2017-01-02] MEDS: KETOROLAC 30 MG INJ IV PRN (17:03)
--- NOTE | 2017-01-02 17:59 | HP ---
DATE OF ADMISSION: 01/02/2017 HISTORY OF PRESENT ILLNESS: The patient has history of pulmonary embolism, history of right breast m ass, status post right partial mastectomy. The patient had reexcision and surgery of the right daisy st mass. She is being seen postprocedure. Blood pressure 131/67, temperature 98.5. Denies any sri rtness of breath, nausea. Patient admitted for further management. PAST MEDICAL HISTORY: Positive for right breast partial mastectomy. ALLERGY 1. LEVAQUIN. 2. OXYCODONE. SOCIAL HISTORY: Negative. FAMILY HISTORY: Positive for breast cancer. MEDICATIONS AT HOME: 1. Patient is currently on cefazolin IV. 2. Albuterol. 3. Ibuprofen. 4. Toradol. 5. Zofran. 6. At home, she takes Apixaban 5 mg daily. 5. Docusate sodium. 6. Tramadol. REVIEW OF SYSTEMS: HEENT: Unremarkable. RESPIRATORY: Unremarkable. CARDIOVASCULAR: Complaining of chest wall pain. ABDOMEN: Unremarkable. EXTREMITIES: Unremarkable. GENITOURINARY: Unremarkable. MUSCULOSKELETAL: Unremarkable. PHYSICAL EXAMINATION: GENERAL: The patient is awake, alert. VITAL SIGNS: Pulse 97, blood pressure 110/54. HEAD: Atraumatic, normocephalic. Pupils equal, reactive to light. NECK: Supple. No JVD. LUNGS: Clear. CARDIOVASCULAR: S1, S2 normal. ABDOMEN: Soft, nontender. Bowel sounds present. No palpable mass. EXTREMITIES: No cyanosis, clubbing, edema. CENTRAL NERVOUS SYSTEM: The patient is awake, alert, no focal deficit. LABORATORY DATA: Not available. IMPRESSION: 1. Right breast reexploration. 2. The patient has right breast cancer. 3. The patient has right reexcision partial mastectomy. 4. History of pulmonary embolism, status post levofloxacin. PLAN: To continue home medications, gentle IV fluid, pain medications, incentive spirometry. Other recommendations per Dr. Anguiano. Dictated By: NELY JACKSON/GUANACO Conf#: [id number] DID#: [id number]
[2017-01-02] MEDS ORDERED: IBUPROFEN 400 MG TAB PO SCH (18:00)
[2017-01-02 18:01] LABS: ALBUMIN 3.6 g/dl (3.3-4.9); POTASSIUM 3.7 mmol/L (3.5-5.1)
[2017-01-02 18:03] LABS: BILIRUBIN,INDIRECT 0.3 mg/dl (0-1.1); BILIRUBIN,TOTAL 0.3 mg/dl (0.2-1.3); CREATININE 0.47 mg/dl (0.44-1.00)
[2017-01-02 18:04] LABS: ALBUMIN/GLOBULIN RATIO 1.33; TOTAL PROTEIN 6.3 g/dl (6.1-8.1)
[2017-01-02 18:05] LABS: CALCIUM 8.5 mg/dl (8.4-10.2)
[2017-01-02] MEDS: APIXABAN 5 MG TABLET PO SCH (20:34)
[2017-01-02] MEDS: DOCUSATE SODIUM 100 MG CAP PO SCH (20:39)
[2017-01-02] MEDS: SOD CHLORIDE 0.9% 1,000 ML IV SCH (23:59)
[2017-01-03] VITALS: BP 96/55; PULSE 88; RESP 20
[2017-01-03] MEDS: KETOROLAC 30 MG INJ IV PRN ×3 (00:32→16:36)
[2017-01-03] MEDS: D5W-0.45 NACL + KCL 20 MEQ 1,000 ML IV SCH ×3 (02:04→16:27)
[2017-01-03 04:00] VITALS: BP 98/58; PULSE 85; RESP 20
[2017-01-03 05:33] LABS: ADD SCAN DIFF NO
[2017-01-03 05:46] LABS: BASOPHILS % 0.3 % (0.0-2.0); EOSINOPHILS # 0.3 10^3/ul (0.0-0.5); EOSINOPHILS % 2.7 % (0.0-7.0); HEMATOCRIT 34.2 % (37.0-47.0); HEMOGLOBIN 10.9 g/dl (12.0-16.0); LYMPHOCYTES # 1.9 10^3/ul (0.8-2.9); LYMPHOCYTES % 15.8 % (15.0-51.0); MEAN CORPUSCULAR HEMOGLOBIN 29.8 pg (29.0-33.0); MEAN CORPUSCULAR HGB CONC 31.9 g/dl (32.0-37.0); MEAN CORPUSCULAR VOLUME 93.4 fl (82.0-101.0); MEAN PLATELET VOLUME 9.5 fl (7.4-10.4); MONOCYTE # 1.2 10^3/ul (0.3-0.9); MONOCYTES % 9.8 % (0.0-11.0); NEUTROPHIL # 8.5 10^3/ul (1.6-7.5); PLATELET COUNT 357 10^3/UL (140-415); RED BLOOD COUNT 3.66 10^6/ul (4.20-5.40); RED CELL DISTRIBUTION WIDTH 13.3 % (11.5-14.5)
[2017-01-03 07:40] VITALS: BP 104/58; RESP 15
[2017-01-03] MEDS: APIXABAN 5 MG TABLET PO SCH (07:59)
[2017-01-03] MEDS: DOCUSATE SODIUM 100 MG CAP PO SCH ×2 (07:59→20:25)
[2017-01-03] MEDS: traMADol 50 MG TAB PO PRN (13:43)
[2017-01-03] MEDS: ONDANSETRON 4 MG INJ IV PRN ×3 (14:27→22:32)
[2017-01-03] MEDS: morphine 2 MG INJ IV PRN ×3 (14:27→22:32)
--- NOTE | 2017-01-03 15:26 | PN ---
Date/Time of Note Date/Time of Note DATE: 01/03/17 TIME: 15:24 Assessment/Plan VTE Prophylaxis VTE Prophylaxis Intervention: ambulation Lines/Catheters IV [facility] Per[facility] IV Assessment/Plan Chief Complaint/Hosp Course 1. Right breast exploration 2, History of breast cancer Problems: Assessment/Plan 1. continue a/b 2. Breast support Subjective 24 Hr Interval Summary Constitutional: no complaints Eyes: no complaints ENT: no complaints Respiratory: no complaints Cardiovascular: no complaints Skin: other (pain right breast) Exam/Review of Systems Vital Signs Vitals Vital Signs Date Time Temp Pulse Resp B/P Pulse Ox O2 Delivery O2 Flow Rate FiO2 01/03/17 07:40 98.0 84 15 104/58 100 01/03/17 04:00 Room Air 01/02/17 13:12 8.0 Intake and Output 01/02/17 01/02/17 01/03/17 15:00 23:00 07:00 Intake Total 800 ml 500 ml 1900 ml Output Total 10 ml Balance 790 ml 500 ml 1900 ml Exam Constitutional: alert, oriented Psych: no complaints Head: normocephalic Eyes: nl conjunctiva Respiratory: clear to auscultation Cardiovascular: regular rate and rhythm Skin: other (right breast wound clean , no drainage) Results Result Diagram: 01/03/17 0456 01/02/17 1725 Results 24 hrs Laboratory Tests Test 01/02/17 17:25 01/03/17 04:56 Sodium Level 135 Potassium Level 3.7 Chloride Level 103 Carbon Dioxide Level 25 Anion Gap 11 Blood Urea Nitrogen 9 Creatinine 0.47 Glucose Level 120 Calcium Level 8.5 Total Bilirubin 0.3 Direct Bilirubin 0.00 Indirect Bilirubin 0.3 Aspartate Amino Transf (AST/SGOT) 18 Alanine Aminotransferase (ALT/SGPT) 31 Alkaline Phosphatase 49 Total Protein 6.3 Albumin 3.6 Globulin 2.70 Albumin/Globulin Ratio 1.33 White Blood Count 12.0 #H Red Blood Count 3.66 L Hemoglobin 10.9 L Hematocrit 34.2 L Mean Corpuscular Volume 93.4 Mean Corpuscular Hemoglobin 29.8 Mean Corpuscular Hemoglobin Concent 31.9 L Red Cell Distribution Width 13.3 Platelet Count 357 Mean Platelet Volume 9.5 Neutrophils % 71.0 Lymphocytes % 15.8 Monocytes % 9.8 Eosinophils % 2.7 Basophils % 0.3 Nucleated Red Blood Cells % 0.0 Neutrophils # 8.5 H Lymphocytes # 1.9 Monocytes # 1.2 H Eosinophils # 0.3 Basophils # 0.0 Nucleated Red Blood Cells # 0.0 Medications Medications Current Medications Morphine Sulfate 2 mg 2 mg Q1H PRN IV PAIN Last administered on 01/03/17 14:27 ; Admin Dose 2 MG; Start 01/02/17 at 15:30 Potassium Chloride/Dextrose/ Sod Cl (D5-1/2ns + KCl 20 Meq) 1,000 ml @ 100 mls/ hr Q10H IV Last administered on 01/03/17 02:04; Admin Dose 100 MLS/HR; Start 01/02/17 at 15:30 Ibuprofen (Motrin) 400 mg Q6 PO ; Start 01/02/17 at 18:00; Status Future Hold Ketorolac Tromethamine (Toradol) 30 mg Q6H PRN IV PAIN Last administered on 07:59; Admin Dose 30 MG; Start 01/02/17 at 17:00; Stop 01/05/17 at 16:59 Ondansetron HCl (Zofran Inj) 4 mg Q6H PRN IV NAUSEA AND/OR VOMITING Last administered on 01/03/17 14:27; Admin Dose 4 MG; Start 01/02/17 at 17:00 Apixaban (Eliquis) 5 mg BID PO Last administered on 01/03/17 07:59; Admin Dose 5 MG; Start 01/02/17 at 21:00 Docusate Sodium (Colace) 100 mg BID PO Last administered on 01/03/17 07:59; Admin Dose 100 MG; Start 01/02/17 at 21:00 Tramadol HCl (Ultram) 50 mg Q6H PRN PO PAIN Last administered on 01/03/17 13: 43; Admin Dose 50 MG; Start 01/02/17 at 17:00 HERMILA JORGENSEN Jan 03, 2017 15:26
--- NOTE | 2017-01-03 16:45 | PN ---
DATE: 01/03/2017 Postop day #1 status post re-excision of the right breast cancer SUBJECTIVE: The patient is complaining of too much pain in the right breast area. OBJECTIVE: VITAL SIGNS: Temperature 98, heart rate 84, respirations 15 to 20, blood pressure 104/58, saturatio n 100% on room air. BREASTS: Appears that there is swelling of the upper part of the right breast. The dressing was re moved and the breast was examined. There is an obvious hematoma, mainly occupying the upper part of the right breast. Dressing was applied again. LABORATORY DATA: There are no labs done today. PLAN: Apply ice bag over the right breast area. Stop the Eliquis blood thinner anticoagulant. Dr. Marie was here, also discussed about it. We will take the patient to the OR on Thursday and evacuate the hematoma. Keep ice bag over the breast meanwhile. Dictated By: SKYLER BERKOWITZ MD PS/NTS Conf#: [id number] DID#: [id number]
[2017-01-03 16:59] LABS: INR 1.1; PROTIME 14.2 Sec (12.2-14.2); PT RATIO 1.1
[2017-01-03 17:00] LABS: PARTIAL THROMBOPLASTIN TIME 32.4 Sec (25.0-35.0)
[2017-01-03 19:26] VITALS: BP 102/57; RESP 18
[2017-01-04] MEDS: morphine 2 MG INJ IV PRN ×5 (02:30→21:39)
[2017-01-04] MEDS: ONDANSETRON 4 MG INJ IV PRN ×5 (02:31→21:38)
[2017-01-04] MEDS: D5W-0.45 NACL + KCL 20 MEQ 1,000 ML IV SCH ×3 (02:39→16:00)
[2017-01-04 05:54] LABS: ADD SCAN DIFF NO
[2017-01-04 08:17] VITALS: BP 91/54; RESP 17
[2017-01-04] MEDS: DOCUSATE SODIUM 100 MG CAP PO SCH ×2 (08:50→20:25)
[2017-01-04 09:28] LABS: BASOPHILS % 0.2 % (0.0-2.0); EOSINOPHILS # 0.3 10^3/ul (0.0-0.5); EOSINOPHILS % 2.3 % (0.0-7.0); HEMATOCRIT 25.9 % (37.0-47.0); HEMOGLOBIN 8.3 g/dl (12.0-16.0); LYMPHOCYTES # 1.4 10^3/ul (0.8-2.9); LYMPHOCYTES % 11.3 % (15.0-51.0); MEAN CORPUSCULAR HEMOGLOBIN 30.4 pg (29.0-33.0); MEAN CORPUSCULAR VOLUME 94.9 fl (82.0-101.0); MEAN PLATELET VOLUME 9.8 fl (7.4-10.4); MONOCYTE # 1.3 10^3/ul (0.3-0.9); MONOCYTES % 10.6 % (0.0-11.0); NEUTROPHIL # 9.2 10^3/ul (1.6-7.5); NEUTROPHILS % 75.3 % (39.0-77.0); PLATELET COUNT 277 10^3/UL (140-415); RED BLOOD COUNT 2.73 10^6/ul (4.20-5.40); RED CELL DISTRIBUTION WIDTH 13.5 % (11.5-14.5); WHITE BLOOD COUNT 12.3 10^3/ul (4.8-10.8)
[2017-01-04] MEDS ORDERED: VITAMIN A & D 5 GM OINT PACKET TOP ONE (10:32)
[2017-01-04] MEDS ORDERED: CEPASTAT LOZENGE MT PRN (12:00)
--- NOTE | 2017-01-04 16:18 | PN ---
DATE: 01/04/2017 SUBJECTIVE: She is still complaining of pain, but is much better than yesterday. OBJECTIVE VITAL SIGNS: Temperature 98, heart rate 71, respirations 17, blood pressure 91/54, saturation 100%. LABORATORY DATA: WBC 12,300 with 75% neutrophils. Hemoglobin has dropped to 8.3, it was 10.9, lizbeth tocrit 25.9, it was 34.2, platelet count is 277. Coagulation last night PT 14.2, INR is 1.1. Faiza l. PHYSICAL EXAMINATION: The swelling which was the upper part of the right breast, now has moved down to the bulk of the breast itself. Hematoma is there. PLAN: Proceed with evacuation of hematoma tomorrow afternoon. The patient will be n.p.o. after mid night. Dictated By: SKYLER BERKOWITZ MD PS/NTS Conf#: [id number] DID#: [id number]
--- NOTE | 2017-01-04 18:11 | PN ---
Date/Time of Note Date/Time of Note DATE: 01/04/17 TIME: 18:10 Assessment/Plan VTE Prophylaxis VTE Prophylaxis Intervention: other Lines/Catheters IV Catheter Type (from Nrs): Peripheral IV Urinary Cath still in place: No Assessment/Plan Chief Complaint/Hosp Course s/p breast surgery chest wall edema high wbc plan per surgery ck labs Problems: Subjective 24 Hr Interval Summary Subjective hx not possible: other (chest wall pain) Respiratory: no complaints Cardiovascular: no complaints Exam/Review of Systems Vital Signs Vitals Vital Signs Date Time Temp Pulse Resp B/P Pulse Ox O2 Delivery O2 Flow Rate FiO2 01/04/17 08:17 98.0 71 17 91/54 100 01/03/17 04:00 Room Air 01/02/17 13:12 8.0 Intake and Output 01/03/17 01/03/17 01/04/17 15:00 23:00 07:00 Intake Total 1300 ml 1920 ml Output Total 7 ml 1000 ml Balance 1293 ml 920 ml Exam Respiratory: clear to auscultation Cardiovascular: regular rate and rhythm Gastrointestinal: bowel sounds (+), soft Extremities: No edema Skin: other (chest wall edema+) Results Result Diagram: 01/04/17 0444 01/02/17 1725 Results 24 hrs Laboratory Tests Test 01/04/17 04:44 White Blood Count 12.3 H Red Blood Count 2.73 #L Hemoglobin 8.3 #L Hematocrit 25.9 #L Mean Corpuscular Volume 94.9 Mean Corpuscular Hemoglobin 30.4 Mean Corpuscular Hemoglobin Concent 32.0 Red Cell Distribution Width 13.5 Platelet Count 277 # Mean Platelet Volume 9.8 Neutrophils % 75.3 Lymphocytes % 11.3 L Monocytes % 10.6 Eosinophils % 2.3 Basophils % 0.2 Nucleated Red Blood Cells % 0.0 Neutrophils # 9.2 H Lymphocytes # 1.4 Monocytes # 1.3 H Eosinophils # 0.3 Basophils # 0.0 Nucleated Red Blood Cells # 0.0 Medications Medications Current Medications Morphine Sulfate (morphine) 2 mg Q1H PRN IV PAIN Last administered on t 16:46; Admin Dose 2 MG; Start 01/02/17 at 15:30 Ibuprofen (Motrin) 400 mg Q6 PO ; Start 01/02/17 at 18:00; Status Future Hold Ketorolac Tromethamine (Toradol) 30 mg Q6H PRN IV PAIN Last administered on 16:36; Admin Dose 30 MG; Start 01/02/17 at 17:00; Stop 01/05/17 at 16:59 Apixaban (Eliquis) 5 mg BID PO Last administered on 01/03/17 07:59; Admin Dose 5 MG; Start 01/02/17 at 21:00; Status Future Hold Docusate Sodium (Colace) 100 mg BID PO Last administered on 01/04/17 08:50; Admin Dose 100 MG; Start 01/02/17 at 21:00 Tramadol HCl (Ultram) 50 mg Q6H PRN PO PAIN Last administered on 01/03/17 13: 43; Admin Dose 50 MG; Start 01/02/17 at 17:00 Ondansetron HCl 4 mg 4 mg Q4H PRN IV NAUSEA AND/OR VOMITING Last administered on 01/04/17 16:45; Admin Dose 4 MG; Start 01/03/17 at 15:37 Potassium Chloride/Dextrose/ Sod Cl (D5-1/2ns + KCl 20 Meq) 1,000 ml @ 100 mls/ hr Q10H IV Last administered on 01/04/17 16:00; Admin Dose 100 MLS/HR; Start 01/03/17 at 16:00 Phenol (Cepastat Lozenge) 1 lozenge Q1H PRN MT PAIN Last administered on 12:12; Admin Dose 1 LOZENGE; Start 01/04/17 at 12:00 NELY MARCUM MD Jan 04, 2017 18:11
[2017-01-04 23:15] VITALS: BP 110/70; PULSE 90; RESP 18
[2017-01-05] VITALS (27 sets, daily range): BP systolic 94–126; BP diastolic 55–80; PULSE 95–126; RESP 12–20
[2017-01-05] MEDS: ONDANSETRON 4 MG INJ IV PRN ×5 (01:30→22:11)
[2017-01-05] MEDS: morphine 2 MG INJ IV PRN ×4 (01:30→22:07)
[2017-01-05 05:12] LABS: ADD SCAN DIFF NO
[2017-01-05 05:21] LABS: BASOPHILS % 0.3 % (0.0-2.0); EOSINOPHILS # 0.5 10^3/ul (0.0-0.5); EOSINOPHILS % 5.2 % (0.0-7.0); HEMATOCRIT 26.6 % (37.0-47.0); HEMOGLOBIN 8.5 g/dl (12.0-16.0); LYMPHOCYTES # 1.6 10^3/ul (0.8-2.9); LYMPHOCYTES % 16.2 % (15.0-51.0); MEAN CORPUSCULAR HEMOGLOBIN 29.8 pg (29.0-33.0); MEAN CORPUSCULAR VOLUME 93.3 fl (82.0-101.0); MEAN PLATELET VOLUME 9.6 fl (7.4-10.4); MONOCYTE # 1.2 10^3/ul (0.3-0.9); MONOCYTES % 11.8 % (0.0-11.0); NEUTROPHIL # 6.7 10^3/ul (1.6-7.5); NEUTROPHILS % 66.1 % (39.0-77.0); PLATELET COUNT 271 10^3/UL (140-415); RED BLOOD COUNT 2.85 10^6/ul (4.20-5.40); RED CELL DISTRIBUTION WIDTH 13.2 % (11.5-14.5); WHITE BLOOD COUNT 10.2 10^3/ul (4.8-10.8)
[2017-01-05 05:34] LABS: ALBUMIN 3.3 g/dl (3.3-4.9); ALBUMIN/GLOBULIN RATIO 1.22; BILIRUBIN,INDIRECT 0.2 mg/dl (0-1.1); BILIRUBIN,TOTAL 0.2 mg/dl (0.2-1.3); CALCIUM 8.8 mg/dl (8.4-10.2); CREATININE 0.56 mg/dl (0.44-1.00); POTASSIUM 3.8 mmol/L (3.5-5.1)
[2017-01-05] MEDS ORDERED: ONDANSETRON 4 MG INJ ONE (07:00)
--- NOTE | 2017-01-05 07:08 | RADRPT ---
PROCEDURE: XR Chest. CLINICAL INDICATION: Cough TECHNIQUE: PA and lateral views of the chest were obtained. COMPARISON: None. FINDINGS: There are right middle lobe interstitial opacities. No pleural effusion or pneumothorax is seen. T he cardiomediastinal silhouette is within normal limits for size. The osseous structures are unrema rkable. IMPRESSION: Right middle lobe interstitial opacities, suspicious for pneumonia. Clinical correlation required. RPTAT: HH .Mindi Florez MD, MD Date Time Electronically viewed and signed by .Mindi Florez MD, MD on 01/05/2017 07:08 .G/
[2017-01-05] MEDS: D5W-0.45 NACL + KCL 20 MEQ 1,000 ML IV SCH ×2 (08:00→11:27)
[2017-01-05] MEDS: DOCUSATE SODIUM 100 MG CAP PO SCH ×2 (09:00→20:54)
--- NOTE | 2017-01-05 16:20 | PN ---
Date/Time of Note Date/Time of Note DATE: 01/05/17 TIME: 16:19 Assessment/Plan VTE Prophylaxis VTE Prophylaxis Intervention: other Lines/Catheters IV Catheter Type (from Nrs): Peripheral IV Urinary Cath still in place: No Assessment/Plan Chief Complaint/Hosp Course s/p breast surgery chest wall edema high wbc lung infilterate plan per surgery ck labs antibiotic dr to to see for hx pembolism Problems: Subjective 24 Hr Interval Summary Respiratory: No shortness of breath, No wheezing Exam/Review of Systems Vital Signs Vitals Vital Signs Date Time Temp Pulse Resp B/P Pulse Ox O2 Delivery O2 Flow Rate FiO2 01/05/17 15:39 98.0 116 118/71 100 Room Air 01/05/17 10:16 2.0 01/05/17 07:44 18 Intake and Output 01/04/17 01/04/17 01/05/17 15:00 23:00 07:00 Intake Total 1630 ml 1200 ml Output Total 2400 ml 1100 ml Balance -770 ml 100 ml Exam Respiratory: diminished breath sounds Cardiovascular: regular rate and rhythm Gastrointestinal: soft Musculoskeletal: nl extremities to inspection Extremities: normal pulses Results Result Diagram: 01/05/17 0436 01/05/17 0436 Results 24 hrs Laboratory Tests Test 01/05/17 04:36 White Blood Count 10.2 Red Blood Count 2.85 L Hemoglobin 8.5 L Hematocrit 26.6 L Mean Corpuscular Volume 93.3 Mean Corpuscular Hemoglobin 29.8 Mean Corpuscular Hemoglobin Concent 32.0 Red Cell Distribution Width 13.2 Platelet Count 271 Mean Platelet Volume 9.6 Neutrophils % 66.1 Lymphocytes % 16.2 Monocytes % 11.8 H Eosinophils % 5.2 Basophils % 0.3 Nucleated Red Blood Cells % 0.0 Neutrophils # 6.7 Lymphocytes # 1.6 Monocytes # 1.2 H Eosinophils # 0.5 Basophils # 0.0 Nucleated Red Blood Cells # 0.0 Sodium Level 135 Potassium Level 3.8 Chloride Level 103 Carbon Dioxide Level 29 Anion Gap 7 L Blood Urea Nitrogen 6 L Creatinine 0.56 Glucose Level 138 Calcium Level 8.8 Total Bilirubin 0.2 Direct Bilirubin 0.00 Indirect Bilirubin 0.2 Aspartate Amino Transf (AST/SGOT) 20 Alanine Aminotransferase (ALT/SGPT) 25 Alkaline Phosphatase 41 L Total Protein 6.0 L Albumin 3.3 Globulin 2.70 Albumin/Globulin Ratio 1.22 Medications Medications Current Medications Morphine Sulfate (morphine) 2 mg Q1H PRN IV PAIN Last administered on 13:39; Admin Dose 2 MG; Start 01/02/17 at 15:30 Ibuprofen (Motrin) 400 mg Q6 PO ; Start 01/02/17 at 18:00; Status Future Hold Ketorolac Tromethamine (Toradol) 30 mg Q6H PRN IV PAIN Last administered on 16:36; Admin Dose 30 MG; Start 01/02/17 at 17:00; Stop 01/05/17 at 16:59 Apixaban (Eliquis) 5 mg BID PO Last administered on 01/03/17 07:59; Admin Dose 5 MG; Start 01/02/17 at 21:00; Status Future Hold Docusate Sodium (Colace) 100 mg BID PO Last administered on 01/04/17 20:25; Admin Dose 100 MG; Start 01/02/17 at 21:00 Tramadol HCl (Ultram) 50 mg Q6H PRN PO PAIN Last administered on 01/03/17 13: 43; Admin Dose 50 MG; Start 01/02/17 at 17:00 Ondansetron HCl 4 mg 4 mg Q4H PRN IV NAUSEA AND/OR VOMITING Last administered on 01/05/17 13:39; Admin Dose 4 MG; Start 01/03/17 at 15:37 Potassium Chloride/Dextrose/ Sod Cl (D5-1/2ns + KCl 20 Meq) 1,000 ml @ 100 mls/ hr Q10H IV Last administered on 01/05/17 11:27; Admin Dose 100 MLS/HR; Start 01/03/17 at 16:00 Phenol (Cepastat Lozenge) 1 lozenge Q1H PRN MT PAIN Last administered on 12:12; Admin Dose 1 LOZENGE; Start 01/04/17 at 12:00 NELY MARCUM MD Jan 05, 2017 16:20
[2017-01-05] MEDS ORDERED: hydrALAzine 20 MG INJ IV PRN (16:30)
[2017-01-05] MEDS ORDERED: LABETALOL HCL 20MG INJ IV PRN (16:30)
[2017-01-05] MEDS ORDERED: HYDROmorphONE (0.2 MG/ML) 10ML SYG IV PRN ×2 (16:30)
[2017-01-05] MEDS ORDERED: EPHEDrine SULFATE 50 MG/5 ML SYG IV PRN (16:30)
[2017-01-05] MEDS ORDERED: MEPERIDINE 25 MG INJ IV PRN (16:30)
[2017-01-05] MEDS ORDERED: FENTAnyl 50 MCG/ML VIAL IV PRN ×3 (16:30)
[2017-01-05] MEDS ORDERED: ONDANSETRON 4 MG INJ IV PRN (16:30)
[2017-01-05] MEDS ORDERED: PROPOFOL 60 ML ONE (16:32)
[2017-01-05] MEDS ORDERED: LIDOCAINE 2% (SDV) 5 ML INJ ONE (16:32)
[2017-01-05] MEDS ORDERED: FENTAnyl 50 MCG/ML VIAL ONE ×2 (16:53→17:03)
[2017-01-05] MEDS ORDERED: PHENYLephrine (100 MCG/ML) 5ML SYG ONE (17:08)
[2017-01-05] MEDS ORDERED: DEXAMETHASONE 4 MG/ML 1 ML INJ ONE (17:15)
[2017-01-05] MEDS ORDERED: DIPHENHYDRAMINE 50 MG INJ IV ONE (18:00)
--- NOTE | 2017-01-05 20:41 | OPR ---
DATE OF OPERATION: 01/05/2017 SURGEON: Héctor Berkowitz MD DELIVERY AND MAIL SORTER: Haim Anguiano MD ANESTHESIA: General. ANESTHESIOLOGIST: Dr. Contreras PREOPERATIVE DIAGNOSIS: Hematoma of the right breast and need for evacuation. POSTOPERATIVE DIAGNOSIS: Hematoma of the right breast and need for evacuation. OPERATION PERFORMED: Evacuation of the hematoma of the right breast and irrigation of the wound and control of the bleeding by electrocautery and closure of the wound, interrupted 2-0 nylon fascia and vertical mattress and simple mattress, and placement of 2 [place] drains 1/4-inch on the lateral aspect of the corner of the previous incision. INDICATION: This is an unfortunate 36-year-old female who had cancer of right breast. She, on 01/02/2017, she underwent reexcision and partial mastectomy that she had had previously for the cancer of the right breast. She was doing fine on Thursday. She was found to be complaining of too much pain and, on examination, it was obvious that she had a hematoma (it should be mentioned that the patient has been on Eliquis tablet 5 mg b.i.d., which restarted after this operation, namely on Thursday night). The reason for this Eliquis is that the patient has had pulmonary emboli and the patient has been on that medication. So, as a side effect of the surgery and side effect of the Eliquis that causes bleeding. So, discussed with the patient we have to wait for a couple of days until the effects of the Eliquis will vanish, and then today, Thursday, we took the patient to the OR. Discussed with the patient and the family the need for evacuation and she agreed. Discussed about the complications, possibly bleeding, possible infection and she understood and she signed a consent, and was taken to the OR. PROCEDURE IN DETAIL: The patient was brought to the operating room, placed on operating table in supine position. Anesthesia was induced by the anesthesiologist. Time-out was called. Type of operation and site of operation was discussed among the team. One gram of Ancef was given IV by the anesthesiologist through the patient. Right breast and chest wall were prepped with Betadine and draped in a sterile fashion. Previous incision was opened. The hematoma was evacuated completely. Wound was irrigated with normal saline solution with 1 liter, then dried up. A few muscular bleeders were identified and were brought under control with electrocautery. At this time, there was no evidence of bleeding or oozing anymore. Decision was made to close the wound with nylon 2-0 interrupted vertical mattress and simple mattress alternatively and bring 2 [place] drains 1/4-inch from the lateral corner of the wound and this was performed. The Alfon[place] drains were affixed to the skin with 2-0 nylon simple sutures were applied to each individual [place] branch. The patient tolerated procedure well. Sponge, needle, and instrument count reported were correct x2. Estimated blood loss acutely 10 mL. Blood clots evacuated of course were from previous bleeding was maybe more than 100 mL. Bulky dressing was applied and taped to the chest wall. The patient was extubated, transferred to recovery room in stable condition. Dictated By: HÉCTOR BERKOWITZ MD PS/NTS Conf#: [id number] DID#: [id number] CC: HÉCTOR BERKOWITZ MD; HAIM ANGUIANO MD;*EndCC* MTDD
[2017-01-05] MEDS: CEFTRIAXONE 1 GM/50 ML (PMX) 50 ML IVPB SCH (20:54)
[2017-01-06] VITALS: BP 96/52; RESP 16
[2017-01-06] MEDS: ONDANSETRON 4 MG INJ IV PRN ×3 (04:34→14:27)
[2017-01-06] MEDS: morphine 2 MG INJ IV PRN ×4 (04:34→22:31)
[2017-01-06 05:04] VITALS: BP 96/74; PULSE 78; RESP 18
[2017-01-06] MEDS: D5W-0.45 NACL + KCL 20 MEQ 1,000 ML IV SCH ×2 (05:31→14:26)
[2017-01-06 05:46] LABS: ADD SCAN DIFF NO
[2017-01-06 06:10] LABS: IRON 41 ug/dl (35-150)
[2017-01-06 06:12] LABS: ALBUMIN 3.6 g/dl (3.3-4.9)
[2017-01-06 06:13] LABS: D-DIMER 358.06 ng/ml (<460)
[2017-01-06 06:15] LABS: BILIRUBIN,INDIRECT 0.4 mg/dl (0-1.1); BILIRUBIN,TOTAL 0.4 mg/dl (0.2-1.3); CREATININE 0.66 mg/dl (0.44-1.00)
[2017-01-06 06:16] LABS: ALBUMIN/GLOBULIN RATIO 1.12; CALCIUM 9.4 mg/dl (8.4-10.2); TOTAL PROTEIN 6.8 g/dl (6.1-8.1)
[2017-01-06 06:20] LABS: TOTAL IRON BINDING CAPACITY 253 ug/dl (241-421)
[2017-01-06 06:31] LABS: RETICULOCYTE COUNT % 2.8 % (0.5-1.5)
[2017-01-06 06:47] LABS: FERRITIN 77.1 ng/ml (6.2-137.0)
[2017-01-06 07:17] LABS: FOLATE 10.7 ng/ml (2.8-20.0)
[2017-01-06 07:42] VITALS: BP 101/56; RESP 18
[2017-01-06] MEDS: DOCUSATE SODIUM 100 MG CAP PO SCH ×2 (08:56→20:46)
[2017-01-06 10:42] LABS: BASOPHILS % 0.3 % (0.0-2.0); EOSINOPHILS # 0.6 10^3/ul (0.0-0.5); EOSINOPHILS % 6.2 % (0.0-7.0); HEMATOCRIT 29.2 % (37.0-47.0); HEMOGLOBIN 8.9 g/dl (12.0-16.0); LYMPHOCYTES # 1.5 10^3/ul (0.8-2.9); LYMPHOCYTES % 15.9 % (15.0-51.0); MEAN CORPUSCULAR HEMOGLOBIN 29.4 pg (29.0-33.0); MEAN CORPUSCULAR HGB CONC 30.5 g/dl (32.0-37.0); MEAN CORPUSCULAR VOLUME 96.4 fl (82.0-101.0); MEAN PLATELET VOLUME 9.9 fl (7.4-10.4); MONOCYTE # 1.1 10^3/ul (0.3-0.9); MONOCYTES % 11.4 % (0.0-11.0); NEUTROPHIL # 6.1 10^3/ul (1.6-7.5); NEUTROPHILS % 65.9 % (39.0-77.0); PLATELET COUNT 332 10^3/UL (140-415); RED BLOOD COUNT 3.03 10^6/ul (4.20-5.40); RED CELL DISTRIBUTION WIDTH 13.3 % (11.5-14.5); WHITE BLOOD COUNT 9.3 10^3/ul (4.8-10.8)
--- NOTE | 2017-01-06 14:48 | CONS ---
Date/Time of Note Date/Time of Note DATE: 01/06/17 TIME: 14:44 Assessment/Plan Assessment/Plan Chief Complaint/Hosp Course The patient is a 36 year old woman with a history of pulmonary embolism, history of right breast cancer, status post right partial mastectomy. On Thursday , 01/02/2017, she underwent reexcision for the cancer of the right breast. The patient was restarted on Eliquis 5 mg b.i.d. on Thursday evening, which she had been on due to history of pulmonary embolism. She was doing fine on Thursday however started having pain and was noted to have developed a hematoma. Last dose of Eliquis was Thursday morning. She was taken to the OR on Thursday for evacuation of right breast hematoma. # Right breast cancer status stage IIB post right partial mastectomy with re- excision 01/02/17 - followed by Dr. Drake, with plan for chemotherapy per patient to start , however will likely need to be delayed due to recent surgeries - patient will also need post-lumpectomy radiation after chemotherapy, followed by hormonal therapy for 5-10 years - given extensive history of breast cancer, patient should have BRCA testing done as an outpatient (approved according to patient) - patient should follow up with Dr. Drake upon discharge # History of pulmonary embolism diagnosed 10/24/16 prior to mastectomy, likely provoked in the setting of cancer. - previously on eliquis, now on hold due to right breast hematoma - D-dimer currently normal at 358 (normal less than 460) therefore low suspicion for acute clot - when determined to be safe by surgery, would recommend starting prophylactic lovenox 40 mg subcutaneous daily especially given hypercoagulable state in the post-op period, then if ok after several days then consider restarting Eliquis # Normocytic anemia, likely due to hematoma with iron deficiency anemia, improved to 8.9 from 8.5 yesterday. Continue to monitor - Iron panel consistent with likely mixed iron deficiency anemia and anemia of chronic inflammation with Fe 41, low TIBC at 253, %sat 16 and ferritin 77.1. W ill give IV iron Ferrlecit x 5 days while in house, consider starting oral iron upon discharge. - Vitamin B12 normal at 365, Folate 10.7, retic count inappropriately low, LDH normal, pending methylmalonic acid and homocysteine Problems: Consultation Date/Type/Reason Admit Date/Time Jan 03, 2017 at 16:02 Date of Consultation: Jan 06, 2017 Type of Consultation: Hematology/Oncology Reason for Consultation Right breast cancer, history of pulmonary embolism Hx of Present Illness The patient is a 36 year old woman with a history of pulmonary embolism, history of right breast cancer stage IIB, status post right partial mastectomy on 11/21/16. On 01/02/2017, she underwent reexcision for the cancer of the right breast. The patient was restarted on Eliquis 5 mg b.i.d. on Thursday evening, which she had been on due to history of pulmonary embolism diagnosed 06/30 at [facility]. She was doing fine on Thursday however started having pain and was noted to have developed a hematoma. She was taken to the OR on Thursday01/05/17 for evacuation of right breast hematoma. Constitutional: no complaints Eyes: no complaints ENT: no complaints Respiratory: No shortness of breath, No wheezing Cardiovascular: no complaints Skin: other (pain right breast) Psychological: no complaints Past Medical History Right breast cancer stage IIB as above Asthma Scoliosis Family History Significant Family History: cancer (grandmother with breast cancer as well as > 5 cousins on maternal side with breast cancer) Social History Alcohol Use: none Smoking Status: Never smoker Exam/Review of Systems Vital Signs Vitals Vital Signs Date Time Temp Pulse Resp B/P Pulse Ox O2 Delivery O2 Flow Rate FiO2 01/06/17 07:42 98.2 96 18 101/56 98 01/06/17 05:04 Nasal Cannula 2.0 Intake and Output 01/05/17 01/05/17 01/06/17 15:00 23:00 07:00 Intake Total 2500 ml 1400 ml Output Total 100 ml Balance 2400 ml 1400 ml Exam Constitutional: alert, oriented Psych: no complaints Head: normocephalic Eyes: nl conjunctiva Neck: supple Respiratory: clear to auscultation, other (dressings c/d/i) Cardiovascular: regular rate and rhythm Gastrointestinal: non-tender, soft Musculoskeletal: nl extremities to inspection Neurological: MARKETING RECRUITER II-XII intact Results Result Diagram: 01/06/17 0459 01/06/17 0459 Results 24 hrs Laboratory Tests Test 01/05/17 15:30 01/06/17 04:59 Urine Test NEGATIVE White Blood Count 9.3 Red Blood Count 3.03 L Hemoglobin 8.9 L Hematocrit 29.2 L Mean Corpuscular Volume 96.4 Mean Corpuscular Hemoglobin 29.4 Mean Corpuscular Hemoglobin Concent 30.5 L Red Cell Distribution Width 13.3 Platelet Count 332 # Mean Platelet Volume 9.9 Neutrophils % 65.9 Lymphocytes % 15.9 Monocytes % 11.4 H Eosinophils % 6.2 Basophils % 0.3 Nucleated Red Blood Cells % 0.0 Neutrophils # 6.1 Lymphocytes # 1.5 Monocytes # 1.1 H Eosinophils # 0.6 H Basophils # 0.0 Nucleated Red Blood Cells # 0.0 Absolute Reticulocyte Count 0.085 Percent Reticulocyte Count 2.8 H D-Dimer 358.06 D-Dimer Comment Sodium Level 139 Potassium Level 4.0 Chloride Level 100 Carbon Dioxide Level 29 Anion Gap 14 # Blood Urea Nitrogen 10 Creatinine 0.66 Glucose Level 100 Calcium Level 9.4 Iron Level 41 Total Iron Binding Capacity 253 Percent Iron Saturation 16 L Ferritin 77.1 Total Bilirubin 0.4 Direct Bilirubin 0.00 Indirect Bilirubin 0.4 Aspartate Amino Transf (AST/SGOT) 18 Alanine Aminotransferase (ALT/SGPT) 26 Alkaline Phosphatase 43 Lactate Dehydrogenase 262 L Total Protein 6.8 Albumin 3.6 Globulin 3.20 Albumin/Globulin Ratio 1.12 Vitamin B12 Level 365 Folate 10.7 Medications Medications Current Medications Morphine Sulfate (morphine) 2 mg Q1H PRN IV PAIN Last administered on 14:27; Admin Dose 2 MG; Start 01/02/17 at 15:30 Docusate Sodium (Colace) 100 mg BID PO Last administered on 01/06/17 08:56; Admin Dose 100 MG; Start 01/02/17 at 21:00 Tramadol HCl (Ultram) 50 mg Q6H PRN PO PAIN Last administered on 01/03/17 13: 43; Admin Dose 50 MG; Start 01/02/17 at 17:00 Ondansetron HCl 4 mg 4 mg Q4H PRN IV NAUSEA AND/OR VOMITING Last administered on 01/06/17 14:27; Admin Dose 4 MG; Start 01/03/17 at 15:37 Potassium Chloride/Dextrose/ Sod Cl (D5-1/2ns + KCl 20 Meq) 1,000 ml @ 100 mls/ hr Q10H IV Last administered on 01/06/17 14:26; Admin Dose 100 MLS/HR; Start 01/03/17 at 16:00 Phenol 1 lozenge 1 lozenge Q1H PRN MT PAIN Last administered on 01/04/17 12:12 ; Admin Dose 1 LOZENGE; Start 01/04/17 at 12:00 Ceftriaxone Sodium (Rocephin) 50 ml @ 100 mls/hr Q24H IVPB Last administered on 01/05/17 20:54; Admin Dose 100 MLS/HR; Start 01/05/17 at 16:30 TOJUAN FRANCISCO MD Jan 06, 2017 14:48
[2017-01-06] MEDS: traMADol 50 MG TAB PO PRN (16:43)
[2017-01-06] MEDS: CEFTRIAXONE 1 GM/50 ML (PMX) 50 ML IVPB SCH (16:43)
[2017-01-06] MEDS: POLYETHYLENE GLYCOL 17 GM PACKET PO PRN (17:01)
[2017-01-06] MEDS: SOD FERRIC GLUC COMPLX 125 MG in SOD CHLORIDE 0.9% 100 ML IVPB SCH (18:39)
--- NOTE | 2017-01-06 19:16 | PN ---
Date/Time of Note Date/Time of Note DATE: 01/06/17 TIME: 19:15 Assessment/Plan VTE Prophylaxis VTE Prophylaxis Intervention: other Lines/Catheters IV C[facility]ter Type (from [facility] Peripheral IV Urinary Cath still in place: No Assessment/Plan Chief Complaint/Hosp Course s/p breast surgery chest wall edema/HEMATOMA S/P SURGERY high wbc lung infilterate plan per surgery ck labs antibiotic dr to to see for hx p embolism Problems: Subjective 24 Hr Interval Summary Subjective hx not possible: other (S/P HEMATOMA EVACUATION) Cardiovascular: no complaints Gastrointestinal: no complaints Genitourinary: no complaints Exam/Review of Systems Vital Signs Vitals Vital Signs Date Time Temp Pulse Resp B/P Pulse Ox O2 Delivery O2 Flow Rate FiO2 01/06/17 07:42 98.2 96 18 101/56 98 01/06/17 05:04 Nasal Cannula 2.0 Intake and Output 01/05/17 01/05/17 01/06/17 15:00 23:00 07:00 Intake Total 2500 ml 1400 ml Output Total 100 ml Balance 2400 ml 1400 ml Exam Respiratory: clear to auscultation Cardiovascular: regular rate and rhythm Gastrointestinal: soft Musculoskeletal: nl extremities to inspection Extremities: normal pulses Results Result Diagram: 01/06/17 0459 01/06/17 0459 Results 24 hrs Laboratory Tests Test 01/06/17 04:59 White Blood Count 9.3 Red Blood Count 3.03 L Hemoglobin 8.9 L Hematocrit 29.2 L Mean Corpuscular Volume 96.4 Mean Corpuscular Hemoglobin 29.4 Mean Corpuscular Hemoglobin Concent 30.5 L Red Cell Distribution Width 13.3 Platelet Count 332 # Mean Platelet Volume 9.9 Neutrophils % 65.9 Lymphocytes % 15.9 Monocytes % 11.4 H Eosinophils % 6.2 Basophils % 0.3 Nucleated Red Blood Cells % 0.0 Neutrophils # 6.1 Lymphocytes # 1.5 Monocytes # 1.1 H Eosinophils # 0.6 H Basophils # 0.0 Nucleated Red Blood Cells # 0.0 Absolute Reticulocyte Count 0.085 Percent Reticulocyte Count 2.8 H D-Dimer 358.06 D-Dimer Comment Sodium Level 139 Potassium Level 4.0 Chloride Level 100 Carbon Dioxide Level 29 Anion Gap 14 # Blood Urea Nitrogen 10 Creatinine 0.66 Glucose Level 100 Calcium Level 9.4 Iron Level 41 Total Iron Binding Capacity 253 Percent Iron Saturation 16 L Ferritin 77.1 Total Bilirubin 0.4 Direct Bilirubin 0.00 Indirect Bilirubin 0.4 Aspartate Amino Transf (AST/SGOT) 18 Alanine Aminotransferase (ALT/SGPT) 26 Alkaline Phosphatase 43 Lactate Dehydrogenase 262 L Total Protein 6.8 Albumin 3.6 Globulin 3.20 Albumin/Globulin Ratio 1.12 Vitamin B12 Level 365 Folate 10.7 Medications Medications Current Medications Morphine Sulfate (morphine) 2 mg Q1H PRN IV PAIN Last administered on 14:27; Admin Dose 2 MG; Start 01/02/17 at 15:30 Docusate Sodium (Colace) 100 mg BID PO Last administered on 01/06/17 08:56; Admin Dose 100 MG; Start 01/02/17 at 21:00 Tramadol HCl (Ultram) 50 mg Q6H PRN PO PAIN Last administered on 01/06/17 16: 43; Admin Dose 50 MG; Start 01/02/17 at 17:00 Ondansetron HCl 4 mg 4 mg Q4H PRN IV NAUSEA AND/OR VOMITING Last administered on 01/06/17 14:27; Admin Dose 4 MG; Start 01/03/17 at 15:37 Potassium Chloride/Dextrose/ Sod Cl (D5-1/2ns + KCl 20 Meq) 1,000 ml @ 100 mls/ hr Q10H IV Last administered on 01/06/17 14:26; Admin Dose 100 MLS/HR; Start 01/03/17 at 16:00 Phenol 1 lozenge 1 lozenge Q1H PRN MT PAIN Last administered on 01/04/17 12:12 ; Admin Dose 1 LOZENGE; Start 01/04/17 at 12:00 Ceftriaxone Sodium (Rocephin) 50 ml @ 100 mls/hr Q24H IVPB Last administered on 01/06/17 16:43; Admin Dose 100 MLS/HR; Start 01/05/17 at 16:30 Polyethylene Glycol 8.5 gm 8.5 gm DAILY PRN PO CONSTIPATION Last administered on 01/06/17 17:01; Admin Dose 8.5 GM; Start 01/06/17 at 17:00 Ferric Sodium Gluconate Complex/ Sodium Chloride (Ferrlecit/NS) 110 ml @ 110 mls/hr Q24H IVPB Last administered on 01/06/17 18:39; Admin Dose 110 MLS/HR; Start 01/06/17 at 18:30; Stop 01/10/17 at 19:29 Enoxaparin Sodium (Lovenox) 40 mg DAILY SC ; Start 01/06/17 at 21:00 NELY MARCUM MD Jan 06, 2017 19:16
[2017-01-06 19:20] VITALS: BP 109/67; RESP 17
--- NOTE | 2017-01-06 19:51 | PN ---
DATE: 01/06/2017 SUBJECTIVE: Postop day #1 status post exploration of the right breast wound, evacuation of the hematoma, irrigation, and placement of 2 Alfonso drains, and closure of the wound. Feels okay. Minimal pain. Has been out of bed and walk around and tolerating diet. OBJECTIVE: VITAL SIGNS: Temperature 98.2, heart rate 97, respirations 18, blood pressure 105 ____ 56, saturation 98% on room air. CHEST: Dressing is intact, checked. There is minimal oozing from the Alfonso drains. ASSESSMENT AND PLAN: The patient is status post evacuation of hematoma of the right breast site after a partial reexcision partial mastectomy. The patient has been apparently on the anticoagulation medication for pulmonary emboli since few months ago. That is why the patient bled, so the patient is not on anticoagulation medication anymore at this time. PLAN: To start the patient on Lovenox tonight at 9:00 p.m., observe tonight, and follow tomorrow morning. If by tomorrow there is no bleeding or excessive oozing, the patient can be discharged home tomorrow. Dictated By: SKYLER BERKOWITZ MD PS/NTS Conf#: [id number] DID#: [id number] CC: KAVYA MARTINEZ MD;*EndCC* MTDD
[2017-01-06] MEDS ORDERED: ENOXAPARIN 40 MG/0.4 ML SYG SC SCH (21:00)
[2017-01-07] MEDS: traMADol 50 MG TAB PO PRN ×3 (05:29→20:08)
[2017-01-07] MEDS: POLYETHYLENE GLYCOL 17 GM PACKET PO PRN (07:00)
[2017-01-07 08:00] VITALS: BP 117/71; PULSE 106; RESP 16
[2017-01-07] MEDS: DOCUSATE SODIUM 100 MG CAP PO SCH ×2 (09:42→21:03)
[2017-01-07] MEDS: D5W-0.45 NACL + KCL 20 MEQ 1,000 ML IV SCH ×2 (09:44)
--- NOTE | 2017-01-07 12:57 | CONS ---
Date/Time of Note Date/Time of Note DATE: 01/07/17 TIME: 12:55 Assessment/Plan Assessment/Plan Chief Complaint/Hosp Course The patient is a 36 year old woman with a history of pulmonary embolism, history of right breast cancer, status post right partial mastectomy. On Thursday , 01/02/2017, she underwent reexcision for the cancer of the right breast. The patient was restarted on Eliquis 5 mg b.i.d. on Thursday evening, which she had been on due to history of pulmonary embolism. She was doing fine on Thursday however started having pain and was noted to have developed a hematoma. Last dose of Eliquis was Thursday morning. She was taken to the OR on Thursday for evacuation of right breast hematoma. # Right breast cancer status stage IIB post right partial mastectomy with re- excision 01/02/17 - followed by Dr. Drake, with plan for chemotherapy per patient to start , however will likely need to be delayed due to recent surgeries - patient will also need post-lumpectomy radiation after chemotherapy, followed by hormonal therapy for 5-10 years - given extensive history of breast cancer, patient should have BRCA testing done as an outpatient (approved according to patient) - patient should follow up with Dr. Drake upon discharge # History of pulmonary embolism diagnosed 10/24/16 prior to mastectomy, likely provoked in the setting of cancer. - previously on eliquis, now on hold due to right breast hematoma - D-dimer currently normal at 358 (normal less than 460) therefore low suspicion for acute clot - would still recommend restarting eliquis (if tolerates prophylactic lovenox) to complete at least 6 months of anticoagulation - patient started on prophylactic lovenox 40 mg subcutaneous daily on 01/06 at 9 p.m. and tolerated well. If ok with surgery, can resume eliquis upon discharge , or if concerned about re-bleeding can give a few more days of prophylactic lovenox then resume Eliquis. # Normocytic anemia, likely due to hematoma with iron deficiency anemia, improved to 8.9 from 8.5 yesterday. Continue to monitor - Iron panel consistent with likely mixed iron deficiency anemia and anemia of chronic inflammation with Fe 41, low TIBC at 253, %sat 16 and ferritin 77.1. Continue IV iron Ferrlecit x 5 days while in house, consider starting oral iron upon discharge. Rx given for ferrous sulfate TID. Patient to follow up with primary oncologist upon discharge. - Vitamin B12 normal at 365, Folate 10.7, retic count inappropriately low, LDH normal, pending methylmalonic acid and homocysteine Problems: Consultation Date/Type/Reason Admit Date/Time Jan 03, 2017 at 16:02 Initial Consult Date 01/06/17 Type of Consultation: Hematology/Oncology 24 HR Interval Summary Free Text/Dictation Patient tolerated lovenox 40 mg last night, without evidence of bleeding. Exam/Review of Systems Vital Signs Vitals Vital Signs Date Time Temp Pulse Resp B/P Pulse Ox O2 Delivery O2 Flow Rate FiO2 01/07/17 08:00 98.7 106 16 117/71 96 Room Air 01/06/17 05:04 2.0 Intake and Output 01/06/17 01/06/17 01/07/17 15:00 23:00 07:00 Intake Total 900 ml 1340 ml 800 ml Balance 900 ml 1340 ml 800 ml Exam Constitutional: alert, oriented Psych: no complaints Head: normocephalic Eyes: nl conjunctiva Neck: supple Respiratory: clear to auscultation, other (dressings c/d/i) Cardiovascular: regular rate and rhythm Gastrointestinal: non-tender, soft Musculoskeletal: nl extremities to inspection Neurological: INSEAM LEVELER II-XII intact Results Result Diagram: 01/06/17 0459 01/06/17 0459 Medications Medications Current Medications Morphine Sulfate (morphine) 2 mg Q1H PRN IV PAIN Last administered on 22:31; Admin Dose 2 MG; Start 01/02/17 at 15:30 Docusate Sodium (Colace) 100 mg BID PO Last administered on 01/07/17 09:42; Admin Dose 100 MG; Start 01/02/17 at 21:00 Tramadol HCl (Ultram) 50 mg Q6H PRN PO PAIN Last administered on 01/07/17 12: 21; Admin Dose 50 MG; Start 01/02/17 at 17:00 Ondansetron HCl 4 mg 4 mg Q4H PRN IV NAUSEA AND/OR VOMITING Last administered on 01/06/17 14:27; Admin Dose 4 MG; Start 01/03/17 at 15:37 Potassium Chloride/Dextrose/ Sod Cl (D5-1/2ns + KCl 20 Meq) 1,000 ml @ 100 mls/ hr Q10H IV Last administered on 01/06/17 14:26; Admin Dose 100 MLS/HR; Start 01/03/17 at 16:00 Phenol 1 lozenge 1 lozenge Q1H PRN MT PAIN Last administered on 01/04/17 12:12 ; Admin Dose 1 LOZENGE; Start 01/04/17 at 12:00 Ceftriaxone Sodium (Rocephin) 50 ml @ 100 mls/hr Q24H IVPB Last administered on 01/06/17 16:43; Admin Dose 100 MLS/HR; Start 01/05/17 at 16:30 Polyethylene Glycol 8.5 gm 8.5 gm DAILY PRN PO CONSTIPATION Last administered on 01/07/17 07:00; Admin Dose 8.5 GM; Start 01/06/17 at 17:00 Ferric Sodium Gluconate Complex/ Sodium Chloride (Ferrlecit/NS) 110 ml @ 110 mls/hr Q24H IVPB Last administered on 01/06/17 18:39; Admin Dose 110 MLS/HR; Start 01/06/17 at 18:30; Stop 01/10/17 at 19:29 Enoxaparin Sodium (Lovenox) 40 mg HS SC ; Start 01/07/17 at 21:00 TOJUAN FRANCISCO MD Jan 07, 2017 12:57
--- NOTE | 2017-01-07 15:12 | PN ---
DATE: 01/07/2017 CHIEF COMPLAINT: Status post evacuation of the hematoma of the right wrist. SUBJECTIVE: Feels much better. Patient is on Lovenox 40 mg subq daily for anticoagulation. OBJECTIVE GENERAL: The patient is awake, alert, oriented. VITAL SIGNS: Temperature 98.7, heart rate 106, respirations 16, blood pressure 117/71, saturation 9 6% on room air. HEENT: No blood workup done today. Dressing change: The wound is clean and relatively dry. Minim al oozing from the drains. Dressing changed. ASSESSMENT AND PLAN: Status post evacuation of the hematoma due to bleeding due to taking Eliquis p ost-operation. The operation actually was reexcision of the cancer of the right breast. Today, the wound dressing is almost dry, maybe few mL of bleeding. PLAN: Will continue Lovenox today and as of tomorrow we will start patient Eliquis 5 mg p.o. b.i.d. We will watch and if no bleeding, then we can discharge the patient tomorrow night. Dictated By: SKYLER BERKOWITZ MD PS/GUANACO Conf#: [id number] DID#: [id number]
[2017-01-07 16:34] LABS: HOMOCYSTEINE - CARDIOVASCULAR 6.1 umol/L (<10.4)
[2017-01-07] MEDS: CEFTRIAXONE 1 GM/50 ML (PMX) 50 ML IVPB SCH (16:49)
[2017-01-07] MEDS: SOD FERRIC GLUC COMPLX 125 MG in SOD CHLORIDE 0.9% 100 ML IVPB SCH (18:30)
[2017-01-07 19:26] VITALS: BP 98/58; RESP 18
[2017-01-07] MEDS ORDERED: ENOXAPARIN 40 MG/0.4 ML SYG SC SCH (21:00)
--- NOTE | 2017-01-07 23:18 | PN ---
Date/Time of Note Date/Time of Note DATE: 01/07/17 TIME: 23:17 Assessment/Plan VTE Prophylaxis VTE Prophylaxis Intervention: other Lines/Catheters IV Catheter Type (from Nrs): Saline Lock Urinary Cath still in place: No Assessment/Plan Chief Complaint/Hosp Course s/p breast surgery chest wall edema/HEMATOMA S/P SURGERY high wbc lung infilterate plan per surgery ck labs antibiotic per surgery Problems: Subjective 24 Hr Interval Summary Cardiovascular: no complaints (no cp) Exam/Review of Systems Vital Signs Vitals Vital Signs Date Time Temp Pulse Resp B/P Pulse Ox O2 Delivery O2 Flow Rate FiO2 01/07/17 19:26 98.1 76 18 98/58 100 01/07/17 08:00 Room Air 01/06/17 05:04 2.0 Intake and Output 01/06/17 01/06/17 01/07/17 15:00 23:00 07:00 Intake Total 900 ml 1340 ml 800 ml Balance 900 ml 1340 ml 800 ml Exam Neck: non-tender Respiratory: clear to auscultation Cardiovascular: regular rate and rhythm Gastrointestinal: soft Musculoskeletal: nl extremities to inspection Results Result Diagram: 01/06/17 0459 01/06/17 0459 Medications Medications Current Medications Morphine Sulfate (morphine) 2 mg Q1H PRN IV PAIN Last administered on 22:31; Admin Dose 2 MG; Start 01/02/17 at 15:30 Docusate Sodium (Colace) 100 mg BID PO Last administered on 01/07/17 21:03; Admin Dose 100 MG; Start 01/02/17 at 21:00 Tramadol HCl (Ultram) 50 mg Q6H PRN PO PAIN Last administered on 01/07/17 20: 08; Admin Dose 50 MG; Start 01/02/17 at 17:00 Ondansetron HCl (Zofran Inj) 4 mg Q4H PRN IV NAUSEA AND/OR VOMITING Last administered on 01/06/17 14:27; Admin Dose 4 MG; Start 01/03/17 at 15:37 Phenol 1 lozenge 1 lozenge Q1H PRN MT PAIN Last administered on 01/04/17 12:12 ; Admin Dose 1 LOZENGE; Start 01/04/17 at 12:00 Ceftriaxone Sodium (Rocephin) 50 ml @ 100 mls/hr Q24H IVPB Last administered on 01/07/17 16:49; Admin Dose 100 MLS/HR; Start 01/05/17 at 16:30 Polyethylene Glycol 8.5 gm 8.5 gm DAILY PRN PO CONSTIPATION Last administered on 01/07/17 07:00; Admin Dose 8.5 GM; Start 01/06/17 at 17:00 Ferric Sodium Gluconate Complex/ Sodium Chloride (Ferrlecit/NS) 110 ml @ 110 mls/hr Q24H IVPB Last administered on 01/06/17 18:39; Admin Dose 110 MLS/HR; Start 01/06/17 at 18:30; Stop 01/10/17 at 19:29 Enoxaparin Sodium (Lovenox) 40 mg HS SC Last administered on 01/07/17 21:05; Admin Dose 40 MG; Start 01/07/17 at 21:00; Stop 01/08/17 at 00:00 Apixaban (Eliquis) 5 mg BID PO ; Start 01/08/17 at 09:00 NELY MARCUM MD Jan 07, 2017 23:18
[2017-01-08] MEDS: traMADol 50 MG TAB PO PRN ×4 (02:09→20:55)
[2017-01-08 05:09] LABS: ADD SCAN DIFF NO
[2017-01-08 05:19] LABS: BASOPHILS % 0.3 % (0.0-2.0); EOSINOPHILS # 0.6 10^3/ul (0.0-0.5); EOSINOPHILS % 6.1 % (0.0-7.0); HEMATOCRIT 30.7 % (37.0-47.0); HEMOGLOBIN 9.7 g/dl (12.0-16.0); LYMPHOCYTES # 1.7 10^3/ul (0.8-2.9); LYMPHOCYTES % 17.5 % (15.0-51.0); MEAN CORPUSCULAR HEMOGLOBIN 29.3 pg (29.0-33.0); MEAN CORPUSCULAR HGB CONC 31.6 g/dl (32.0-37.0); MEAN CORPUSCULAR VOLUME 92.7 fl (82.0-101.0); MEAN PLATELET VOLUME 9.2 fl (7.4-10.4); MONOCYTES % 9.9 % (0.0-11.0); NEUTROPHIL # 6.3 10^3/ul (1.6-7.5); NEUTROPHILS % 65.5 % (39.0-77.0); PLATELET COUNT 401 10^3/UL (140-415); RED BLOOD COUNT 3.31 10^6/ul (4.20-5.40); RED CELL DISTRIBUTION WIDTH 12.9 % (11.5-14.5); WHITE BLOOD COUNT 9.6 10^3/ul (4.8-10.8)
[2017-01-08 05:28] LABS: POTASSIUM 3.7 mmol/L (3.5-5.1)
[2017-01-08 05:30] LABS: CREATININE 0.59 mg/dl (0.44-1.00)
[2017-01-08 05:31] LABS: ALBUMIN/GLOBULIN RATIO 1.17; BILIRUBIN,INDIRECT 0.5 mg/dl (0-1.1); BILIRUBIN,TOTAL 0.5 mg/dl (0.2-1.3); CALCIUM 9.3 mg/dl (8.4-10.2); TOTAL PROTEIN 7.4 g/dl (6.1-8.1)
[2017-01-08 08:32] VITALS: BP 90/53; RESP 18
[2017-01-08] MEDS: APIXABAN 5 MG TABLET PO SCH ×2 (08:32→20:25)
[2017-01-08] MEDS: DOCUSATE SODIUM 100 MG CAP PO SCH ×2 (08:33→20:25)
--- NOTE | 2017-01-08 13:03 | PN ---
DATE: 01/08/2017 PROGRESS NOTE FOLLOWUP Status post-evacuation of a hematoma of the right wrist, day #3. SUBJECTIVE: Feels good. OBJECTIVE: GENERAL: Awake, alert, oriented x3. VITAL SIGNS: Temperature 98, heart rate 69, respirations 18, blood pressure 98/63, saturating 98% o n room air. LABORATORY: BUN, creatinine, sodium and potassium are within normal limits. WBC 9,600 with 65% seg mented. Hemoglobin 9.7, hematocrit 30.7 and stable since 2 days ago. Dressing change right wrist. Wound clean, with a Alfonso drain in place. Drainage of blood is very minimal. Only one sponge has been and slightly blood-tinged. PLAN: The patient can be discharged home today. Keep the dressing intact. Patient to be followed in Dr. Anguiano' office next Thursday. Patient to call the office and make an appointment. Dictated By: SKYLER SMITH/GUANACO Conf#: [id number] DID#: [id number]
--- NOTE | 2017-01-08 15:16 | CONS ---
Date/Time of Note Date/Time of Note DATE: 01/08/17 TIME: 15:14 Assessment/Plan Assessment/Plan Chief Complaint/Hosp Course The patient is a 36 year old woman with a history of pulmonary embolism, history of right breast cancer, status post right partial mastectomy. On Thursday , 01/02/2017, she underwent reexcision for the cancer of the right breast. The patient was restarted on Eliquis 5 mg b.i.d. on Thursday evening, which she had been on due to history of pulmonary embolism. She was doing fine on Thursday however started having pain and was noted to have developed a hematoma. Last dose of Eliquis was Thursday morning. She was taken to the OR on Thursday for evacuation of right breast hematoma. # Right breast cancer status stage IIB post right partial mastectomy with re- excision 01/02/17 - followed by Dr. Drake, with plan for chemotherapy per patient to start , however will likely need to be delayed due to recent surgeries - patient will also need post-lumpectomy radiation after chemotherapy, followed by hormonal therapy for 5-10 years - given extensive history of breast cancer, patient should have BRCA testing done as an outpatient (approved according to patient) - patient should follow up with Dr. Drake upon discharge # History of pulmonary embolism diagnosed 10/24/16 prior to mastectomy, likely provoked in the setting of cancer, on eliquis which was held due to right breast hematoma. - D-dimer currently normal at 358 (normal less than 460) therefore low suspicion for acute clot - would still recommend restarting eliquis (if tolerates prophylactic lovenox) to complete at least 6 months of anticoagulation - patient started on prophylactic lovenox 40 mg subcutaneous daily on 01/06 and at 9 p.m. and tolerated well. Now restarted on eliquis as of this morning. Ok to d/c home today per surgery. Patient should follow up with Dr. Drake upon discharge. # Normocytic anemia, likely due to hematoma with iron deficiency anemia, improved to 9.7 from 8.3. Continue to monitor - Iron panel consistent with likely mixed iron deficiency anemia and anemia of chronic inflammation with Fe 41, low TIBC at 253, %sat 16 and ferritin 77.1. Continue IV iron Ferrlecit x 5 days while in house, consider starting oral iron upon discharge. Rx given for ferrous sulfate TID. Patient to follow up with primary oncologist upon discharge. - Vitamin B12 normal at 365, Folate 10.7, retic count inappropriately low, LDH normal, homocysteine within normal limits, pending methylmalonic acid Problems: Consultation Date/Type/Reason Admit Date/Time Jan 03, 2017 at 16:02 Initial Consult Date 01/06/17 Type of Consultation: Hematology/Oncology 24 HR Interval Summary Free Text/Dictation Per patient, dressing was only slightly blood tinged. No other bleeding. Was supposed to be discharged home today however home health needs to be set up. Exam/Review of Systems Vital Signs Vitals Vital Signs Date Time Temp Pulse Resp B/P Pulse Ox O2 Delivery O2 Flow Rate FiO2 01/08/17 08:32 98.0 69 18 90/53 98 01/07/17 08:00 Room Air 01/06/17 05:04 2.0 Intake and Output 01/07/17 01/07/17 01/08/17 15:00 23:00 07:00 Intake Total 1430 ml 1240 ml Output Total 1200 ml 950 ml Balance 230 ml 290 ml Exam Constitutional: alert, oriented Psych: no complaints Head: normocephalic Eyes: nl conjunctiva Neck: supple Respiratory: clear to auscultation, other (dressings c/d/i except slight blood tinge) Cardiovascular: regular rate and rhythm Gastrointestinal: non-tender, soft Musculoskeletal: nl extremities to inspection Neurological: HALL COORDINATOR II-XII intact Results Result Diagram: 01/08/17 0450 01/08/17 0450 Results 24 hrs Laboratory Tests Test 01/08/17 04:50 White Blood Count 9.6 Red Blood Count 3.31 L Hemoglobin 9.7 L Hematocrit 30.7 L Mean Corpuscular Volume 92.7 Mean Corpuscular Hemoglobin 29.3 Mean Corpuscular Hemoglobin Concent 31.6 L Red Cell Distribution Width 12.9 Platelet Count 401 # Mean Platelet Volume 9.2 Neutrophils % 65.5 Lymphocytes % 17.5 Monocytes % 9.9 Eosinophils % 6.1 Basophils % 0.3 Nucleated Red Blood Cells % 0.0 Neutrophils # 6.3 Lymphocytes # 1.7 Monocytes # 1.0 H Eosinophils # 0.6 H Basophils # 0.0 Nucleated Red Blood Cells # 0.0 Sodium Level 137 Potassium Level 3.7 Chloride Level 99 Carbon Dioxide Level 28 Anion Gap 14 Blood Urea Nitrogen 15 Creatinine 0.59 Glucose Level 88 Calcium Level 9.3 Total Bilirubin 0.5 Direct Bilirubin 0.00 Indirect Bilirubin 0.5 Aspartate Amino Transf (AST/SGOT) 30 Alanine Aminotransferase (ALT/SGPT) 40 Alkaline Phosphatase 51 Total Protein 7.4 Albumin 4.0 Globulin 3.40 H Albumin/Globulin Ratio 1.17 Medications Medications Current Medications Morphine Sulfate (morphine) 2 mg Q1H PRN IV PAIN Last administered on 22:31; Admin Dose 2 MG; Start 01/02/17 at 15:30 Docusate Sodium (Colace) 100 mg BID PO Last administered on 01/07/17 21:03; Admin Dose 100 MG; Start 01/02/17 at 21:00 Tramadol HCl (Ultram) 50 mg Q6H PRN PO PAIN Last administered on 01/08/17 14: 45; Admin Dose 50 MG; Start 01/02/17 at 17:00 Ondansetron HCl (Zofran Inj) 4 mg Q4H PRN IV NAUSEA AND/OR VOMITING Last administered on 01/06/17 14:27; Admin Dose 4 MG; Start 01/03/17 at 15:37 Phenol 1 lozenge 1 lozenge Q1H PRN MT PAIN Last administered on 01/04/17 12:12 ; Admin Dose 1 LOZENGE; Start 01/04/17 at 12:00 Ceftriaxone Sodium (Rocephin) 50 ml @ 100 mls/hr Q24H IVPB Last administered on 01/07/17 16:49; Admin Dose 100 MLS/HR; Start 01/05/17 at 16:30 Polyethylene Glycol 8.5 gm 8.5 gm DAILY PRN PO CONSTIPATION Last administered on 01/07/17 07:00; Admin Dose 8.5 GM; Start 01/06/17 at 17:00 Ferric Sodium Gluconate Complex/ Sodium Chloride (Ferrlecit/NS) 110 ml @ 110 mls/hr Q24H IVPB Last administered on 01/06/17 18:39; Admin Dose 110 MLS/HR; Start 01/06/17 at 18:30; Stop 01/10/17 at 19:29 Apixaban (Eliquis) 5 mg BID PO Last administered on 01/08/17 08:32; Admin Dose 5 MG; Start 01/08/17 at 09:00 TOJUAN FRANCISCO MD Jan 08, 2017 15:16
[2017-01-08] MEDS: CEFTRIAXONE 1 GM/50 ML (PMX) 50 ML IVPB SCH (16:32)
--- NOTE | 2017-01-08 17:54 | PDOCDIS ---
Discharge Instructions CONDITION Patient Condition: Stable HOME CARE INSTRUCTIONS: Diet Instructions: RegularSpecial Diet: REGULAR ACTIVITY: Activity Restrictions: Slowly Increase Activity Rest between Activity Avoid heavy lifting Bathing Restrictions: Shower FOLLOW UP/APPOINTMENTS Appointments f/u own oncology 1 wk see own pcp [address] valverde 1 wk NELY MARCUM MD Jan 08, 2017 17:54
[2017-01-08] MEDS ORDERED: POLY17PO6 PO (17:55)
[2017-01-08] MEDS ORDERED: CEPH500C PO (17:55)
[2017-01-08] MEDS: SOD FERRIC GLUC COMPLX 125 MG in SOD CHLORIDE 0.9% 100 ML IVPB SCH (18:02)
--- NOTE | 2017-01-08 18:17 | PN ---
Date/Time of Note Date/Time of Note DATE: 01/08/17 TIME: 18:16 Assessment/Plan VTE Prophylaxis VTE Prophylaxis Intervention: other Lines/Catheters IV Catheter Type (from [facility]): Saline Lock Urinary Cath still in place: No Assessment/Plan Chief Complaint/Hosp Course s/p breast surgery chest wall edema/HEMATOMA S/P SURGERY better high wbc better lung infilterate plan per surgery antibiotic per surgery home Problems: Subjective 24 Hr Interval Summary Cardiovascular: no complaints Gastrointestinal: no complaints Genitourinary: no complaints Exam/Review of Systems Vital Signs Vitals Vital Signs Date Time Temp Pulse Resp B/P Pulse Ox O2 Delivery O2 Flow Rate FiO2 01/08/17 08:32 98.0 69 18 90/53 98 01/07/17 08:00 Room Air 01/06/17 05:04 2.0 Intake and Output 01/07/17 01/07/17 01/08/17 15:00 23:00 07:00 Intake Total 1430 ml 1240 ml Output Total 1200 ml 950 ml Balance 230 ml 290 ml Exam Respiratory: clear to auscultation Cardiovascular: regular rate and rhythm Gastrointestinal: soft Results Result Diagram: 01/08/17 0450 01/08/17 0450 Results 24 hrs Laboratory Tests Test 01/08/17 04:50 White Blood Count 9.6 Red Blood Count 3.31 L Hemoglobin 9.7 L Hematocrit 30.7 L Mean Corpuscular Volume 92.7 Mean Corpuscular Hemoglobin 29.3 Mean Corpuscular Hemoglobin Concent 31.6 L Red Cell Distribution Width 12.9 Platelet Count 401 # Mean Platelet Volume 9.2 Neutrophils % 65.5 Lymphocytes % 17.5 Monocytes % 9.9 Eosinophils % 6.1 Basophils % 0.3 Nucleated Red Blood Cells % 0.0 Neutrophils # 6.3 Lymphocytes # 1.7 Monocytes # 1.0 H Eosinophils # 0.6 H Basophils # 0.0 Nucleated Red Blood Cells # 0.0 Sodium Level 137 Potassium Level 3.7 Chloride Level 99 Carbon Dioxide Level 28 Anion Gap 14 Blood Urea Nitrogen 15 Creatinine 0.59 Glucose Level 88 Calcium Level 9.3 Total Bilirubin 0.5 Direct Bilirubin 0.00 Indirect Bilirubin 0.5 Aspartate Amino Transf (AST/SGOT) 30 Alanine Aminotransferase (ALT/SGPT) 40 Alkaline Phosphatase 51 Total Protein 7.4 Albumin 4.0 Globulin 3.40 H Albumin/Globulin Ratio 1.17 Medications Medications Current Medications Morphine Sulfate (morphine) 2 mg Q1H PRN IV PAIN Last administered on 22:31; Admin Dose 2 MG; Start 01/02/17 at 15:30 Docusate Sodium (Colace) 100 mg BID PO Last administered on 01/07/17 21:03; Admin Dose 100 MG; Start 01/02/17 at 21:00 Tramadol HCl (Ultram) 50 mg Q6H PRN PO PAIN Last administered on 01/08/17 14: 45; Admin Dose 50 MG; Start 01/02/17 at 17:00 Ondansetron HCl (Zofran Inj) 4 mg Q4H PRN IV NAUSEA AND/OR VOMITING Last administered on 01/06/17 14:27; Admin Dose 4 MG; Start 01/03/17 at 15:37 Phenol 1 lozenge 1 lozenge Q1H PRN MT PAIN Last administered on 01/04/17 12:12 ; Admin Dose 1 LOZENGE; Start 01/04/17 at 12:00 Ceftriaxone Sodium (Rocephin) 50 ml @ 100 mls/hr Q24H IVPB Last administered on 01/08/17 16:32; Admin Dose 100 MLS/HR; Start 01/05/17 at 16:30 Polyethylene Glycol 8.5 gm 8.5 gm DAILY PRN PO CONSTIPATION Last administered on 01/07/17 07:00; Admin Dose 8.5 GM; Start 01/06/17 at 17:00 Ferric Sodium Gluconate Complex/ Sodium Chloride (Ferrlecit/NS) 110 ml @ 110 mls/hr Q24H IVPB Last administered on 01/08/17 18:02; Admin Dose 110 MLS/HR; Start 01/06/17 at 18:30; Stop 01/10/17 at 19:29 Apixaban (Eliquis) 5 mg BID PO Last administered on 01/08/17 08:32; Admin Dose 5 MG; Start 01/08/17 at 09:00 NELY MARCUM MD Jan 08, 2017 18:17
[2017-01-08 19:05] VITALS: BP 99/61; RESP 18
[2017-01-09] MEDS: traMADol 50 MG TAB PO PRN ×2 (03:14→09:30)
[2017-01-09 08:09] VITALS: BP 121/60; RESP 18
[2017-01-09] MEDS: DOCUSATE SODIUM 100 MG CAP PO SCH (09:00)
[2017-01-09] MEDS: APIXABAN 5 MG TABLET PO SCH (09:21)
--- NOTE | 2017-01-09 14:24 | CONS ---
Date/Time of Note Date/Time of Note DATE: 01/09/17 TIME: 14:23 Assessment/Plan Assessment/Plan Chief Complaint/Hosp Course The patient is a 36 year old woman with a history of pulmonary embolism, history of right breast cancer, status post right partial mastectomy. On Thursday , 01/02/2017, she underwent reexcision for the cancer of the right breast. The patient was restarted on Eliquis 5 mg b.i.d. on Thursday evening, which she had been on due to history of pulmonary embolism. She was doing fine on Thursday however started having pain and was noted to have developed a hematoma. Last dose of Eliquis was Thursday morning. She was taken to the OR on Thursday for evacuation of right breast hematoma. # Right breast cancer status stage IIB post right partial mastectomy with re- excision 01/02/17 - followed by Dr. Drake, with plan for chemotherapy per patient to start , however will likely need to be delayed due to recent surgeries - patient will also need post-lumpectomy radiation after chemotherapy, followed by hormonal therapy for 5-10 years - given extensive history of breast cancer, patient should have BRCA testing done as an outpatient (approved according to patient) - patient should follow up with Dr. Drake upon discharge # History of pulmonary embolism diagnosed 10/24/16 prior to mastectomy, likely provoked in the setting of cancer, on eliquis which was held due to right breast hematoma. - D-dimer currently normal at 358 (normal less than 460) therefore low suspicion for acute clot - would still recommend restarting eliquis (if tolerates prophylactic lovenox) to complete at least 6 months of anticoagulation - patient started on prophylactic lovenox 40 mg subcutaneous daily on 01/06 and at 9 p.m. and tolerated well. Now restarted on eliquis as of 01/08/17. Ok to d/c home today per surgery. Patient should follow up with Dr. Drake upon discharge. # Normocytic anemia, likely due to hematoma with iron deficiency anemia, improved to 9.7 from 8.3. Continue to monitor - Iron panel consistent with likely mixed iron deficiency anemia and anemia of chronic inflammation with Fe 41, low TIBC at 253, %sat 16 and ferritin 77.1. Continue IV iron Ferrlecit x 5 days while in house, consider starting oral iron upon discharge. Rx given for ferrous sulfate TID. Patient to follow up with primary oncologist upon discharge. - Vitamin B12 normal at 365, Folate 10.7, retic count inappropriately low, LDH normal, homocysteine within normal limits, pending methylmalonic acid Problems: Consultation Date/Type/Reason Admit Date/Time Jan 03, 2017 at 16:02 Initial Consult Date 01/06/17 Type of Consultation: Hematology/Oncology 24 HR Interval Summary Free Text/Dictation Patient discharged home so not seen. Exam/Review of Systems Vital Signs Vitals Vital Signs Date Time Temp Pulse Resp B/P Pulse Ox O2 Delivery O2 Flow Rate FiO2 01/09/17 08:09 98.2 65 18 121/60 91 01/07/17 08:00 Room Air 01/06/17 05:04 2.0 Intake and Output 01/08/17 01/08/17 01/09/17 15:00 23:00 07:00 Intake Total 160 ml 700 ml Output Total 900 ml Balance 160 ml -200 ml Results Result Diagram: 01/08/17 0450 01/08/17 0450 Medications Medications Current Medications Morphine Sulfate (morphine) 2 mg Q1H PRN IV PAIN Last administered on 22:31; Admin Dose 2 MG; Start 01/02/17 at 15:30 Docusate Sodium (Colace) 100 mg BID PO Last administered on 01/07/17 21:03; Admin Dose 100 MG; Start 01/02/17 at 21:00 Tramadol HCl (Ultram) 50 mg Q6H PRN PO PAIN Last administered on 01/09/17 09: 30; Admin Dose 50 MG; Start 01/02/17 at 17:00 Ondansetron HCl (Zofran Inj) 4 mg Q4H PRN IV NAUSEA AND/OR VOMITING Last administered on 01/06/17 14:27; Admin Dose 4 MG; Start 01/03/17 at 15:37 Phenol 1 lozenge 1 lozenge Q1H PRN MT PAIN Last administered on 01/04/17 12:12 ; Admin Dose 1 LOZENGE; Start 01/04/17 at 12:00 Ceftriaxone Sodium (Rocephin) 50 ml @ 100 mls/hr Q24H IVPB Last administered on 01/08/17 16:32; Admin Dose 100 MLS/HR; Start 01/05/17 at 16:30 Polyethylene Glycol 8.5 gm 8.5 gm DAILY PRN PO CONSTIPATION Last administered on 01/07/17 07:00; Admin Dose 8.5 GM; Start 01/06/17 at 17:00 Ferric Sodium Gluconate Complex/ Sodium Chloride (Ferrlecit/NS) 110 ml @ 110 mls/hr Q24H IVPB Last administered on 01/08/17 18:02; Admin Dose 110 MLS/HR; Start 01/06/17 at 18:30; Stop 01/10/17 at 19:29 Apixaban (Eliquis) 5 mg BID PO Last administered on 01/09/17 09:21; Admin Dose 5 MG; Start 01/08/17 at 09:00 TOJUAN FRANCISCO MD Jan 09, 2017 14:24 Ferric Sodium Gluconate Complex/ Sodium Chloride (Ferrlecit/NS) 110 ml @ 110 mls/hr Q24H IVPB Last administered on 01/08/17 18:02; Admin Dose 110 MLS/HR; Start 01/06/17 at 18:30; Stop 01/10/17 at 19:29 Apixaban (Eliquis) 5 mg BID PO Last administered on 01/09/17 09:21; Admin Dose 5 MG; Start 01/08/17 at 09:00 TOJUAN FRANCISCO MD Jan 09, 2017 14:24
--- NOTE | 2017-01-09 17:58 | PN ---
Date/Time of Note Date/Time of Note DATE: 01/09/17 TIME: 17:56 Assessment/Plan VTE Prophylaxis VTE Prophylaxis Intervention: ambulation Lines/Catheters IV Catheter Type (from [facility]): Saline Lock Urinary Cath still in place: No Assessment/Plan Chief Complaint/Hosp Course 1. Right breast exploration 2, History of breast cancer Problems: Assessment/Plan 1. Pt is discharging 2. Follow up with oncology Subjective 24 Hr Interval Summary Constitutional: improved, no complaints Exam/Review of Systems Vital Signs Vitals Vital Signs Date Time Temp Pulse Resp B/P Pulse Ox O2 Delivery O2 Flow Rate FiO2 01/09/17 08:09 98.2 65 18 121/60 91 01/07/17 08:00 Room Air 01/06/17 05:04 2.0 Intake and Output 01/08/17 01/08/17 01/09/17 15:00 23:00 07:00 Intake Total 160 ml 700 ml Output Total 900 ml Balance 160 ml -200 ml Exam Constitutional: alert, oriented Psych: no complaints Respiratory: clear to auscultation Cardiovascular: regular rate and rhythm Results Result Diagram: 01/08/17 0450 01/08/17 0450 HERMILA JORGENSEN Jan 09, 2017 17:58
== END 2017-01-09 14:55 | disposition home or self-care (01) | DRG 582 ==
LOC: SDS 08:49 → UNDOADMIN 15:01 → MS1 15:01
PROVIDERS: ADMIT Surgery Surgical Oncology; ATTEND Surgery Surgical Oncology
PROC: 0HBT0ZZ Excision of Right Breast, Open Approach (ICD-10-PCS; principal; 2017-01-02 10:30)
PROC: 0H9T00Z Drainage of Right Breast with Drainage Device, Open Approach (ICD-10-PCS; 2017-01-05)
DX: C50.911 Malignant neoplasm of unspecified site of right female breast (principal); L76.32 Postprocedural hematoma of skin and subcutaneous tissue following other procedure; D50.9 Iron deficiency anemia, unspecified; N64.89 Other specified disorders of breast; Z86.711 Personal history of pulmonary embolism; Y83.8 Other surgical procedures as the cause of abnormal reaction of the patient, or of later complication, without mention of misadventure at the time of the procedure; Y92.239 Unspecified place in hospital as the place of occurrence of the external cause; R91.8 Other nonspecific abnormal finding of lung field; D72.829 Elevated white blood cell count, unspecified; T45.515A Adverse effect of anticoagulants, initial encounter
CPT/HCPCS: 71020; 80053; 82607; 82728; 82746; 83090; 83540; 83615; 83921; 84703; 85025; 85045; 85378; 85610; 85730; 88305; J0330; J0690; J0696; J1100; J1170; J1200; J1650; J1885; J2270; J2370; J2405; J2710; J2916; J3010; J3480; J7030

== ENCOUNTER 2017-02-20 07:52 | Day surgery (SDC) | payer OTHER ==
[2017-02-20] VITALS (9 sets, daily range): BP systolic 104–125; BP diastolic 67–77; PULSE 86–108; RESP 16–24; Ht 154.9 cm; Wt 53.3 kg
[~2017-02-20] VITALS: Ht 154.9 cm; Wt 53.3 kg
[~2017-02-20 07:52] MED LIST changes: -CEFAZOLIN 1 GM INJ ONE; -CEFAZOLIN 1 GM/50 ML (PMX) 50 ML IVPB ONE; -OXYC-279 PO; +POLY17PO6 PO; -ROCURONIUM 50 MG INJ ONE
[2017-02-20] MEDS ORDERED: POLYMYXIN/BACITRACIN 1L IRRIG IRR ONE (08:30)
[2017-02-20] MEDS ORDERED: CEFAZOLIN 1 GM/50 ML (PMX) 50 ML IVPB ONE (08:30)
[2017-02-20] MEDS ORDERED: CEFAZOLIN 1 GM/50 ML (PMX) 0 ML IVPB ONE (08:37)
[2017-02-20] MEDS ORDERED: LIDOCAINE 2%/EPI 30 ML INJ ONE (08:37)
[2017-02-20] MEDS ORDERED: MIDAZOLAM 1 MG/ML 2 ML INJ ONE (08:37)
[2017-02-20] MEDS ORDERED: FENTAnyl 50 MCG/ML VIAL ONE (08:37)
[2017-02-20] MEDS ORDERED: HEPARIN 1000 UNITS/ML 10 ML INJ ONE (08:37)
[2017-02-20] MEDS ORDERED: SOD CHLORIDE 0.9% 500 ML ONE (08:37)
[2017-02-20] MEDS ORDERED: SOD CHLORIDE 0.9% 1,000 ML IV SCH (08:45)
[2017-02-20] MEDS ORDERED: ALBU2.5V3 NEB (09:38)
--- NOTE | 2017-02-20 11:58 | RADRPT ---
PROCEDURE: ULTRASOUND-GUIDED VASCULAR ACCESS CLINICAL INDICATION: Port-A-Cath placement TECHNIQUE: Informed consent was obtained from the patient after a discussion of the risks, benefit s, and alternatives of the procedure. Risks include, but are not limited to bleeding and infection. The left internal jugular vein was found to be patent and compressible with cho scale and power Dop pler. A picture of it was saved to the PACS. 1% lidocaine was utilized for anesthesia. Under dire ct ultrasound guidance, a 21-gauge needle was advanced into the left internal jugular vein. A wire was advanced through the micropuncture needle. The micropuncture needle was then removed over the w ilana and a 5-[place] catheter was advanced over the wire. COMPARISON: None. FINDINGS: Patent and compressible left internal jugular vein. IMPRESSION: Ultrasound guided vascular access for placement of a Port-A-Cath. RPTAT: EE Physician Mike Date Time Electronically viewed and signed by Physician Mike on 02/20/2017 11:58 /
--- NOTE | 2017-02-20 11:58 | RADRPT ---
PROCEDURE: LEFT INTERNAL JUGULAR PORT PLACEMENT, ULTRASOUND AND FLUOROSCOPIC GUIDANCE CLINICAL INDICATION: IV access for chemotherapy FLUOROSCOPY TIME: 0.1 minute TECHNIQUE: The procedure, its potential risks, benefits and alternatives were explained. Risks, including but n ot limited to pain, bleeding, infection, thrombosis, embolism and arrhythmia were discussed and und erstood. Following this discussion with the patient, informed consent was obtained. The left internal jugular vein was imaged with ultrasound and was shown to be compressible, with no evidence of thrombus. An image of this vein was obtained and saved to the PACS system. The neck and chest wall were scrubbed, draped and prepped in a sterile manner. The procedure was ca rried out under aseptic conditions. 1% lidocaine with epinephrine was utilized for local anesthesia . Following the standard prep, and under ultrasound guidance, the right internal jugular vein was punctured using anterior single wall micropuncture technique, and a micropuncture catheter was adva nced into the superior vena cava. Following this, an appropriate site on the anterior chest wall w as selected for port placement. The skin over the port placement site was then anesthetized. The s kin was then incised. Deep anesthesia was then given. Using blunt dissection technique, a pocket w as created in the subcutaneous soft tissue. Following this, a tract connecting the port pocket with the neck entry site was anesthetized. A 6 Tamazight catheter was then pulled through the subcutaneous tract. Exchange of the micropuncture catheter was then done for a peel-away sheath. The catheter was then advanced through the sheath, the sheath was removed and the catheter was positioned with it s tip at the cavoatrial junction. Fluoroscopy was utilized to guide placement of the catheter. An im age of its final position was saved to the PACS system. The proximal end of the catheter was then tr immed and attached to a power injectable dual lumen chest wall port. The catheter and the port were then heparinized. The port was then placed within the pocket blank. The wound was then irrigated, and was dried. The wound was then closed using interrupted 3-0 Vicryl sutures, and a running subde rmal 4-0 Vicryl suture. Then over this, Dermabond was applied. A 4-0 Vicryl suture was placed to c lose the neck entry site, over which Dermabond was applied. The patient tolerated the procedure well . COMPARISON: none FINDINGS: as above. IMPRESSION: Placement of power injectable single lumen left chest wall port, as above. The catheter is ready for use. RPTAT: EE Chris Cortes Physician Date Time Electronically viewed and signed by Chris Cortes Physician on 02/20/2017 11:58 RA/
== END 2017-02-20 13:57 | disposition home or self-care (01) ==
LOC: SDS 07:52
PROVIDERS: ATTEND Internal Medicine Hematology & Oncology
DX: C50.911 Malignant neoplasm of unspecified site of right female breast (principal); J45.909 Unspecified asthma, uncomplicated
CPT/HCPCS: 36561; 76942; C1788; J1644; J2250; J3010; J7040; Z7610; J0690

== ENCOUNTER 2017-02-20 20:33 | Emergency (ER) | payer SELFPAY ==
[~2017-02-20] VITALS: Ht 160 cm; Wt 54.5 kg
[~2017-02-20 20:33] MED LIST changes: +ALBU2.5V3 NEB
[2017-02-20 20:41] VITALS: Ht 160 cm; Wt 54.5 kg
== END 2017-02-21 00:46 | disposition left against medical advice (07) ==
LOC: E/R 20:33
DX: Z53.21 Procedure and treatment not carried out due to patient leaving prior to being seen by health care provider (principal)

== ENCOUNTER → 2017-07-24 | Outpatient (CLI) | payer OTHER ==
[~2017-07-24] MED LIST changes: -CEPH500C PO; -DOCU-144 PO; -POLY17PO6 PO
--- NOTE | 2017-07-25 14:46 | RADRPT ---
Echocardiogram Report Patient Name: BJORN BULLARD Gender: Female Date: 1980 Study Date: 24-Jul-2017 [employer] Coordinator: Jaelyn Lopez RDCS Location: EKG Ref. Physician: ANIRUDH LEUNG Quality: Adequate Procedures: Transthoracic echocardiogram with complete 2D, M-Mode, and doppler examination. Indications: Breast Cancer. 2D/M Mode Doppler Measurement Value Normal Ranges Measurement Value Normal Ranges LVIDd 2D 2.6 3.5 - 5.6 cm AV Peak Vin 1.1 m/sec LVIDs 2D 1.5 2.1 - 4.1 cm AV Peak PG 4.4 mmHg LVPWd 2D 1.0 0.6 - 1.1 cm LVOT Peak Vin 0.7 m/sec IVSd 2D 1.1 0.6 - 1.1 cm LVOT Peak PG 2.2 mmHg AoR Diam 2D 2.3 2.0 - 3.7 cm MV E Peak Vin 0.7 m/sec EDV 2D 24.7 cm3 MV A Peak Vin 0.7 m/sec ESV 2D 3.4 cm3 MV E/A 0.9 LA Dimen 2D 2.0 2.3 - 4.0 cm MV Decel Time 130 msec MV Decel [place] 5 MV E/A 0.9 Findings Left Ventricle: Normal left ventricular systolic function. Normal left ventricular cavity size. Normal left ventricular wall thickness. Ejection fraction is visually estimated at 65 %. E/E`=7. normal e/e` ratio c/w normal LA pressure.No evidence of Diastolic Dysfunction on doppler imaging. Right Ventricle: Normal right ventricular size. Normal right ventricular systolic function. Left Atrium: The left atrium is normal in size. Right Atrium: The right atrium is normal in size. Mitral Valve: Normal appearance and function of the mitral valve with trace physiologic regurgitation. Mildly redundant mitral valve leaflets without significant prolapse. Aortic Valve: Trileaflet aortic valve. No aortic regurgitation. Tricuspid Valve: Normal appearance of the tricuspid valve. Unable to obtain RVSP due to minimal presence of tricuspid regurgitation. Pulmonic Valve: Normal pulmonic valve appearance. Pericardium: Normal pericardium with no significant pericardial effusion. Aorta: Normal aortic root. IVC: Normal size and normal respiratory collapse consistent with normal right atrial pressure. Conclusions 1.Normal left ventricular systolic function. Normal left ventricular cavity size. Normal left ventricular wall thickness. Ejection fraction is visually estimated at 65 %. E/E`=7. normal e/e` ratio c/w normal LA pressure.No evidence of Diastolic Dysfunction on doppler imaging. 2.The left atrium is normal in size. 3.Normal appearance and function of the mitral valve with trace physiologic regurgitation. Mildly redundant mitral valve leaflets without significant prolapse. 4.Normal appearance of the tricuspid valve. Unable to obtain RVSP due to minimal presence of tricuspid regurgitation. 5.Normal pericardium with no significant pericardial effusion. 6.Normal size and normal respiratory collapse consistent with normal right atrial pressure. 7.No Vegetation, masses, or thrombi seen. 8.Trileaflet aortic valve. No aortic regurgitation. Electronically Signed By: Rubens Yeh 25-Jul-2017 14:45:46 -0800 Patient Name: BJORN BULLARD Study Date: 24-Jul-2017 [id number]
== END | disposition home or self-care (01) ==
LOC: EKG 12:51
PROVIDERS: ATTEND Internal Medicine Hematology & Oncology
DX: C50.919 Malignant neoplasm of unspecified site of unspecified female breast (principal)
CPT/HCPCS: 93306

== ENCOUNTER 2017-11-18 06:42 | Inpatient (IN) | END 2017-11-19 20:15 | disposition home or self-care (01) | DRG 585 ==

== ENCOUNTER 2018-11-17 07:06 | Day surgery (SDC) | payer OTHER ==
[2018-11-17] VITALS (12 sets, daily range): BP systolic 111–134; BP diastolic 65–81; PULSE 74–100; RESP 14–25; Ht 152.4 cm; Wt 58.2 kg
[~2018-11-17] VITALS: Ht 152.4 cm; Wt 58.2 kg
[~2018-11-17 07:06] MED LIST changes: -APIX5TAB PO; +LIDOCAINE 2% (SDV) 5 ML INJ ONE
[2018-11-17] MEDS ORDERED: IVAB5TAB PO (07:51)
[2018-11-17] MEDS ORDERED: CHOL100062 PO (07:52)
[2018-11-17] MEDS ORDERED: FOLI-49 PO (07:52)
[2018-11-17] MEDS ORDERED: LETR2.5T PO (07:52)
[2018-11-17] MEDS ORDERED: OMEP20CA16 PO (07:53)
[2018-11-17] MEDS ORDERED: DICL75TA2 PO (07:53)
[2018-11-17] MEDS ORDERED: EPINEPHrine 1 MG INJ ONE (09:17)
[2018-11-17] MEDS ORDERED: morphine 2 MG INJ IV PRN (10:00)
[2018-11-17] MEDS ORDERED: ONDANSETRON 4 MG INJ IV PRN ×2 (10:00→12:30)
[2018-11-17] MEDS ORDERED: BUPIVACAINE LIPOSOME/PF 266 MG/20 ML VIAL INFIL SCH (10:00)
[2018-11-17] MEDS ORDERED: HYDROCODONE/APAP (5/325) TAB PO PRN (10:00)
[2018-11-17] MEDS ORDERED: PROPOFOL 100 ML ONE (10:12)
[2018-11-17] MEDS ORDERED: ROCURONIUM 50 MG INJ ONE (10:23)
[2018-11-17] MEDS ORDERED: CEFAZOLIN 1 GM INJ ONE (10:23)
[2018-11-17] MEDS ORDERED: DEXAMETHASONE 4 MG/ML 5 ML INJ ONE (10:24)
[2018-11-17] MEDS ORDERED: ONDANSETRON 4 MG INJ ONE (10:31)
[2018-11-17] MEDS ORDERED: GENTAMICIN 80 MG INJ ONE (10:47)
[2018-11-17] MEDS ORDERED: POLYMYXIN/BACITRACIN 1L IRRIG ONE (10:47)
[2018-11-17] MEDS ORDERED: GLYCOPYRROLATE 0.4 MG INJ ONE ×2 (11:54→12:06)
[2018-11-17] MEDS ORDERED: NEOSTIGMINE 10 MG INJ ONE ×2 (11:54→12:06)
--- NOTE | 2018-11-17 11:59 | HPN ---
Date/Time of Note Date/Time of Note DATE: 11/17/18 TIME: 11:59 Interval H&P Admission Note Pt. seen H&P reviewed: No system changes CATRACHO SLOAN MD Nov 17, 2018 11:59
[2018-11-17] MEDS ORDERED: MEPERIDINE 25 MG INJ ONE (12:13)
--- NOTE | 2018-11-17 12:13 | PAC ---
Date/Time of Note Date/Time of Note DATE: 11/17/18 TIME: 12:13 Post-Anesthesia Notes Post-Anesthesia Note Last documented vital signs Vital Signs Date Temp Pulse Resp B/P (MAP) Pulse Ox O2 O2 Flow FiO2 Time Delivery Rate 11/17/18 97.5 95 16 116/65 98 1213 (82) Activity: WNL Respiratory function: WNL Cardiovascular function: WNL Mental status: Baseline Pain reasonably controlled: Yes Hydration appropriate: Yes Nausea/Vomiting absent: Yes APRIL HURST Nov 17, 2018 12:13
[2018-11-17] MEDS ORDERED: hydrALAzine 20 MG INJ IV PRN (12:30)
[2018-11-17] MEDS ORDERED: LABETALOL HCL 20MG INJ IV PRN (12:30)
[2018-11-17] MEDS ORDERED: KETOROLAC 30 MG INJ IV PRN (12:30)
[2018-11-17] MEDS ORDERED: MEPERIDINE 25 MG INJ IV PRN (12:30)
[2018-11-17] MEDS ORDERED: METOCLOPRAMIDE 10 MG INJ IV PRN (12:30)
[2018-11-17] MEDS ORDERED: DIPHENHYDRAMINE 50 MG INJ IV PRN (12:30)
[2018-11-17] MEDS ORDERED: ACETAMINOPHEN 325 MG TAB PO PRN (12:30)
[2018-11-17] MEDS ORDERED: EPHEDrine SULFATE 50 MG/5 ML SYG IV PRN (12:30)
[2018-11-17] MEDS ORDERED: FENTAnyl 50 MCG/ML VIAL IV PRN ×3 (12:30)
[2018-11-17] MEDS ORDERED: HYDROmorphONE 1 MG/5 ML IV SYRINGE IV PRN ×3 (12:30)
[2018-11-17] MEDS ORDERED: OXYCODONE/ACETAMINOPHEN (5/325) TAB PO PRN ×2 (12:30)
[2018-11-17] MEDS ORDERED: ALBUTEROL 0.083% (NEB) 2.5 MG/3 ML AMP HHN PRN (12:30)
--- NOTE | 2018-11-17 12:38 | OPR ---
Date/Time of Note Date/Time of Note DATE: 11/17/18 TIME: 12:25 Operative Report Free Text/Dictation Plastic Surgery Operative Report Preoperative diagnosis: history of breast CA Postoperative diagnosis: same Procedure: bilateral grid casting machine operator helper removal, implant placement, revision with fat graft and port a cath removal Surgeon: humza Joyner.: NOEL curtis Anesthesia: gen EBL: min IV fluids: per flow sheet Findings: n/a Complications: none Dispo:home Indications for procedure: 38 yo F presents for bilateral grid casting machine operator helper removal, implant placement, revision with fat graft and port a cath removal. The risks, benefits, alternatives of performing this procedure was discussed with the patient including the risks of bleeding, infection, wound healing problems, asymmetry, partial or total graft loss, need for revision and the patient states that she understands these risks and would like to proceed with the procedure. All questions were answered and no guarantees were given with regards to the outcome of this procedure. Description of procedure: The patient was brought to the operating room [facility] [place] where general anesthesia was induced and she was prepped and draped in usual sterile fashion with ChloraPrep. First, stab incisions were made in the upper and lower umbilicus and then 600 cc of tumescent solution containing 1 L of normal saline with 1 amp of epinephrine and 20 cc of Exparel infiltrated into these sites. Next, stab incisions were made in the lateral breast bilaterally and 120 cc of the same solution were infiltrated into the lateral breasts. 10 cc of the same solution were injected into the previous mastectomy scars. Attention was first turned to the right breast where the incision was made with a 10 blade and electrocautery used to dissect down to the breast implant capsule. Capsule was opened and the grid casting machine operator helper was removed. It was deflated on the back table and was found to have approximately 480 cc is present within it. The right pocket was inspected it was tight superiorly and therefore a superior and anterior capsulotomy was carried out. The breast was irrigated with antibiotic irrigation and hemostasis was achieved with electrocautery. Attention was turned to the left breast, the incision was made with a 10 blade and electrocautery was used to dissect down to the breast implant capsule. The capsule was opened and the grid casting machine operator helper was removed. It was also deflated and had a similar amount of saline present. A superior capsulotomy was carried out here as well. The breast was irrigated anticoagulation and hemostasis was achieved with electrocautery. A 485 cc style F sizer was opened, rinsed in antibiotic irrigation and was inserted into the right breast using a funnel. A 520 cc sizer was opened, rinsed in antibiotic irrigation, and was inserted into the left breast using the funnel. The patient was set up on operating room table. The left breast looked significantly larger. Therefore the 520 cc sizer was removed and the 485 cc sizer was placed into the left breast. It looked larger than the left breast did with the same size were present. Therefore the 520 cc sizer was placed into the right breast in the 485 in the left breast. This gave a symmetric appearance. Therefore, the patient was sat back down, the sizes were removed. The breasts were irrigated with antibiotic irrigation and Betadine was allowed to sit in the breast for 5 minutes. Gloves were changed and then a SRF style implant 520 cc serial #[id number] was opened, rinsed in antibiotic irrigation and was inserted into the right breast with minimal touch technique. The same style 485 cc implant serial #[id number] was opened, rinsed in antibiotic irrigation was started in the left breast with minimal touch technique. Patient was sat up once again and breasts appeared symmetric. Therefore she was sat back down and the capsules were closed with 2-0 Vicryl suture and the skin was tacked closed with 3-0 Vicryl suture. The 10 blade was used to incise over the previous insertion site scar for the Port-A-Cath. Dissection proceeded with electrocautery to the Port-A-Cath. It was from the surrounding tissues using the forceps and mosquito. It was then removed in its entirety. Pressure was held for 5 minutes. Once pressure was removed there was no bleeding. The pocket was rinsed with antibiotic irrigation and hemostasis was achieved with the cautery. It was closed with 3-0 Vicryl suture and 4-0 Monocryl suture. Attention was then turned to the lower abdomen where the Adam cannulas were used to label aspirate fat. The fat was allowed to decant and was then processed on Telfa. Additional fat was harvested from the right lateral chest wall and left lateral chest wall to help make these areas more symmetric and had a smoother contour. The fat was also added to count was processed on Telfa. Next, the fat was loaded into syringes and was inserted with small aliquots and multiple passes into the right medial breast, right anterior breast, left medi al, anterior, superior and inferior breast. Approximately 40 cc were injected into each breast. The breasts were inspected and had achieve the desired result and therefore the incisions were closed with 4-0 Monocryl suture and dressed with Dermabond. Patient tolerated procedure well, there were no complications, follow-up information and wound care instructions were given Preoperative Diagnosis history of breast CA Postoperative Diagnosis same Operation/Procedure Performed bilateral grid casting machine operator helper removal, implant placement, revision with fat graft and port a cath removal Surgeon see signature line Astrobiologist NOEL curtis Anesthesia Type: general Estimated Blood Loss: minimal Transfusion none Specimen none Grafts/Implants none Complications none Pt Condition Post Procedure: stable Procedure Description see dictation CATRACHO SLOAN MD Nov 17, 2018 12:38
== END 2018-11-17 15:00 | disposition home or self-care (01) ==
LOC: SDS 07:06
PROVIDERS: ATTEND Surgery Plastic and Reconstructive Surgery
DX: N65.1 Disproportion of reconstructed breast (principal); Z85.3 Personal history of malignant neoplasm of breast
CPT/HCPCS: 11970; 88300; C1789; C9290; J0171; J0690; J1100; J1170; J1580; J1885; J2175; J2405; J2710; J3010; Z7512; Z7610